=== PATIENT | female | born 1940 | race African-American/Black ===

== ENCOUNTER 2016-11-24 12:35 | Inpatient (IN) ==
[2016-11-24 13:30] LABS: Basophils % 0.2 % (0.0-0.8); Hematocrit 25.4 VOL% (35.7-47.0); Hemoglobin 8.4 GM/DL (12.0-16.0); Immature Granulocytes % 0.4 %; Immature Granulocytes Absolute 0.04 #; Lymphocytes # 1.2 10*3/uL (1.4-4.0); Lymphocytes % 11.5 % (21.3-54.2); Mean Corpuscular HGB Conc 33.1 GM/DL (32-36); Mean Corpuscular Hemoglobin 32 PG (27-34); Mean Corpuscular Volume 97.3 FL (87-102); Monocytes # 0.5 10*3/uL (0.11-0.8); Monocytes % 4.7 % (1.7-12.7); Neutrophils # 8.8 10*3/uL (1.4-7.4); Neutrophils % 83.2 % (38.7-73.9); Platelet Count 149 T/CUMM (130-400); Red Blood Count 2.61 MC/CUMM (3.8-5.5); Red Cell Distribution Width 13.4 % (9.3-17.3); White Blood Count 10.6 T/CUMM (4-12)
--- NOTE | 2016-11-24 13:36 | CT Report ---
CT head/brain wo con Indication: Fall Comparison: CT brain dated May 11, 2016 Technique: Multiple axial tomographic images of the brain were obtained without the use of intravenous contrast. Findings: Moderate global volume loss present. Moderate periventricular and subcortical hypoattenuation noted which is nonspecific but consistent with chronic microvascular ischemic change. Demyelinating process and vasculitis less likely considerations. Atherosclerotic calcifications demonstrated. There is no convincing evidence of acute intracranial hemorrhage . No convincing evidence of hydrocephalus. Midline structures are nondisplaced. Redemonstration of significant calcification density about the odontoid atlantal articulation with some effacement of the ventral foramen magnum, unchanged. IMPRESSION: No acute intracranial abnormality demonstrated. Probable chronic microvascular ischemic change and volume loss. The CT exam was performed using one or more of the following dose reduction techniques: Automated exposure control, adjustment of the mA and/or kV according to patient size, or use of iterative reconstruction technique. PROCEDURE INTERPRETED AT [facility] DEPARTMENT OF RADIOLOGY Final Report Signed by: Dr Sabino Staton
--- NOTE | 2016-11-24 13:43 | XRay Report ---
XR knee 2V BI Indication: Fall Comparison: None Technique: Frontal and lateral views of bilateral knees. 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 No definitive acute fracture demonstrated. Small suprapatellar joint effusions bilaterally. IMPRESSION: As above. PROCEDURE INTERPRETED AT [facility] DEPARTMENT OF RADIOLOGY Final Report Signed by: Dr Sabino Staton
--- NOTE | 2016-11-24 14:01 | Emergency Department Note ---
Mk Rock Brittany, am scribing for, and in the presence of, Montana Kay MD 13:23. Eliza Rock Phillip K, MD, personally performed the services described in this documentation, ascribed by Maddie Terrazas in my presence, and it is both accurate and complete 401 . Arrival - Arrival Chief Complaint: Fall Stated Complaint: Fall Garcia ED Nursing Triage Note: Patient presents to the ER per EMS status post fall; family unsure how long patient was down and patient is also unsure. She reports waking up this morning and blacking out; she does have a laceration present to right, lateral eye. EMS reports approximately 500ml blood loss; blood clotted before their arrival. Patient was found in a prone position per EMS. Mode of Arrival: Stretcher Limitations: No Limitations Source: Patient, RN Notes Reviewed Time Seen by Provider: 11/24/16 13:08 - History of Present Illness HPI Narrative: Patient is a 76 y/o black female presenting to the ED via EMS for further evaluation s/p syncopal episode and fall that occurred earlier today. Family reports that they last saw patient at about 0700 this morning before they left the residence to see another family member. Upon their return to the residence some hours later, patient was found in prone position on the floor with clotted blood around her, EMS estimated about 500 mL of blood loss. Patient reportedly took a syncopal fall, hitting her head in the process resulting in a 2 cm laceration to the R periorbital area. Patient recalls waking up this morning and last remembers "blacking out." Patient currently takes a blood thinner. Patient complains of bilateral knee pain, but denies any neck pain, back pain, or arm pain. She has no other complaint/pain. Review of System - Review of System 12 point system: reviewed and no additional remarkable complaints except as stated - Review of System Constitutional: Absent: fever Cardiovascular: Present: syncope Musculoskeletal: Present: leg pain (bilateral knee) Skin: Present: other (laceration to head) Medical,Surgical,& Family Hx - Medical History Respiratory: History of: Pulmonary Embolism Gastrointestinal: History of: GERD - Social History Smoking Status: Never smoker Frequency of Alcohol Use: None Type of Drug Use: None Exam Vital Signs: Vital Signs Temperature 97.1 F L 11/24/16 12:44 Pulse Rate 55 L 08/16/17 12:44 Respiratory Rate 19 11/24/16 12:44 Blood Pressure 146/46 11/24/16 12:44 O2 Sat by Pulse Oximetry 97 11/24/16 12:44 - General General appearance: alert, in no apparent distress - Head Head exam: Present: normocephalic. Absent: atraumatic (2 cm laceration to the lateral right periorbital area) - Eye Eye exam: Present: PERRL, EOMI. Absent: normal appearance (pale conjuntiva) - ENT ENT exam: Present: mucous membranes moist - Neck Neck exam: Present: normal inspection, full ROM, trachea midline - Chest Chest inspection: Present: normal inspection, symmetric chest wall rise - Respiratory Respiratory exam: Present: normal lung sounds bilaterally - Cardiovascular Cardiovascular exam: Present: regular rate, normal rhythm, normal heart sounds - Abdominal Exam Abdominal exam: Present: soft, normal bowel sounds. Absent: tenderness - Extremities Exam Extremities exam: Present: tenderness (tender right medial joint line of the knee). Absent: normal inspection (swelling over the right medial joint line), full ROM (limited secondary to pain) - Back Exam Back exam: Present: normal inspection - Neurological Exam Neurological exam: Present: alert, CN II-XII intact. Absent: oriented X3 ( oriented to person, place, but not time), motor sensory deficit - Psychiatric Psychiatric exam: Present: normal affect, normal mood - Skin Skin exam: Present: warm, dry, pallor. Absent: intact (2 cm laceration right periorbital area), normal color Course Course Narrative: Patient discussed with the hospitalist. We will admit because of her significant blood loss at the scene of her fall. She also does not remember how she fell. Results - Labs CBC & BMP: 11/24/16 13:21 Lab Results: I have reviewed the patients labs Labs: Laboratory Tests 11/24/16 13:21 WBC 10.6 RBC 2.61 L Hgb 8.4 L Hct 25.4 L Plt Count 149 Neut % (Auto) 83.2 H Lymph % (Auto) 11.5 L Neut # (Auto) 8.8 H Lymph # (Auto) 1.2 L - EKG EKG results: interpreted by EVARISTO (Sinus bradycardia) - Diagnostic Findings Procedure: CT: report reviewed by me (CT Head: No acute intracranial abnormality demonstrated. 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 No definitive acute fracture demonstrated. Small suprapatellar joint effusions bilaterally.) Disposition Clinical Impression: Anemia, Syncope, Laceration, Blood loss from laceration Case discussed with: patient, patient's family Disposition: Still a Patient Condition: Guarded Additional Instructions: Admit to the hospitalist for serial H&H's
[2016-11-24] MEDS ORDERED: ONDANSETRON 4 MG/2 ML VIAL IV PRN (15:59)
[2016-11-24] MEDS ORDERED: ACETAMINOPHEN 325 MG TABLET PO PRN (15:59)
--- NOTE | 2016-11-24 16:20 | Hospitalist History & Physical ---
Assessment and Plan (1) Syncope Status: Acute Assessment and plan: Admit to telemetry. No acute pathology on CT. Consult cardiology for eval. CBC/ BMP in am. Current Visit: Yes (2) Bradycardia Status: Acute Assessment and plan: EKG monitoring. Consult cardiology to evaluate. Unable to obtain history from patient or family. Current Visit: Yes (3) Anemia Status: Acute Assessment and plan: Unknown if this is chronic issue or related to blood loss after fall. Check frequent H&Hs. Follow up as needed. Current Visit: Yes (4) Laceration Status: Acute Assessment and plan: Pt. received suture in the ED Current Visit: Yes History of Present Illness Chief complaint: fall History of present illness: Ms. Oakes is a 76 year old black female with a history of gerd, dementia, thyroid issues, and pulmonary embolism that presented to the ED via EMS for further evaluation after a syncopal episode and a fall. Pt.'s family was not at the bedside to provide any history for patient. Per ED physician note, pt was last seen at 0700 by her family. When they returned home patient was in the prone position on the floor with clotted blood surrounding her. EMS was alerted and they reported about 500 ml of blood loss. Pt. was reported to have a syncopal episode, fell and hit her head. Pt. is not a very good historian but was able to report falling. She stated "I blacked out". Pt is reported as taking a blood thinner but no meds were noted in the record. Pt. denies any other issues at the ED. Pt's CT was negative. Pt. was also noted to be bradycardiac. Pt. will be admitted to the hospitalist service for further evaluation. Home Medications Medication Instructions Recorded Confirmed Type Donepezil HCl 23 mg PO BEDTIME 11/24/16 11/24/16 History Levothyroxine Tab [Synthroid Tab] 125 mcg PO DAILY@0700 11/24/16 11/24/16 History Simvastatin [Zocor] 80 mg PO BEDTIME 11/24/16 11/24/16 History Allergies Allergy/AdvReac Type Severity Reaction Status Date / Time No Known Allergies Allergy Verified 11/24/16 15:59 Medical,Surgical,& Family Hx - Medical History Respiratory: History of: Pulmonary Embolism Genitourinary: History of: Recurring Urinary Tract Infections Gastrointestinal: History of: GERD - Social History Smoking Status: Never smoker Frequency of Alcohol Use: None Type of Drug Use: None ROS unobtainable: due to dementia (unable to obtain history from patient. No family present at the bedside. ) Exam - Constitutional Vitals: Period Temp Pulse Resp BP Sys/Feldman Pulse Ox Last 24 Hr 97.1 F-97.1 F 50-55 18-19 146/46 97 General appearance: normal weight, no acute distress - Head Head exam: Present: normocephalic. Absent: normal inspection (hair), atraumatic - Eye Eye exam: Present: EOMI, other (bruise on right eye). Absent: periorbital swelling Pupils: Present: TEJA - Respiratory Respiratory exam: Present: clear to auscultation bilaterally. Absent: wheezes - Cardiovascular Cardiovascular exam: Present: bradycardia - GI/Abdominal GI/Abdominal exam: Present: normal bowel sounds, soft. Absent: tenderness - Extremities Exam Extremities exam: Present: edema - Neurological Exam Neurological exam: Present: altered - Psychiatric Psychiatric exam: Present: normal affect, normal mood - Skin Skin exam: Present: normal color, warm, dry Results - Labs CBC & BMP: 11/24/16 13:21 Lab Results: I have reviewed the past 24 hour labs
[2016-11-24 16:56] LABS: Hematocrit 24.3 VOL% (35.7-47.0); Hemoglobin 8.2 GM/DL (12.0-16.0)
[2016-11-24 17:26] LABS: Calcium 9.3 MG/DL (8.5-10.1); Magnesium 2.2 MG/DL (1.8-2.4); Osmolality,Calculated 288.3 MOS/KG (273-304); Potassium 3.7 MMOL/L (3.5-5.1)
[2016-11-24] MEDS: SODIUM CHLORIDE 0.9% 1,000 ML IV SCH (17:38)
--- NOTE | 2016-11-24 19:33 | Cardiology Consult Note ---
Assessment and Plan - Time spent with patient Time spent with patient: Greater than 30 minutes (1) Syncope Status: Acute Assessment and plan: Differential diagnosis syncope could be bradycardia, tachycardia, seizure, orthostatic hypertension, metabolic cause, or some other cause Plan/recommendation: air sampling and monitoring Echo/Doppler Neuro consult Carotid ultrasound --if not done We will review CT of the head Recheck BMP in the a.m. Watch renal function I will follow along with you. Thank you for allowing me to participate in this patient's care Current Visit: Yes (2) DVT (deep venous thrombosis) Status: Acute Current Visit: Yes (3) Pulmonary embolus Status: Acute Current Visit: Yes (4) Chronic anticoagulation Status: Acute Current Visit: Yes (5) Anemia Status: Acute Current Visit: Yes (6) Bradycardia Status: Acute Current Visit: Yes (7) Laceration Status: Acute Current Visit: Yes History of Present Illness - Data of Consult Patient: new to practice Consult date: 11/24/16 Requesting Physician: Ludmila Hoskins - Consult Narrative History of present illness: Ms. Oakes is a 76 year old female pcp--dr. shemar ruiz--0 Who presents after a fall face down. She injured her mouth. Is a syncopal episode. She was noted to have low heart rate on admission but not less than 50. She was sewn up for her injuries. She states she did not have any tongue biting or urinary incontinence but she had some bowel incontinence. She states she was clear after the event. No orthopnea, PND, edema, palpitations,, cough wheezing or phlegm. History of DVT and PE-own anticoagulant now GERD Dementia Does not smoke cigarettes or drink alcohol No family history of coronary disease or diabetes SPH: Sometimes, yes, yes and yes Review of systems is remarkable for HPI. CC: Aeblardo Aviles III - Home Medications and Allergies Home Medications: Home Medications Medication Instructions Recorded Confirmed Type Calcium Carb/Mag Ox/Zinc Sulf 1 each PO DAILY 11/24/16 11/24/16 History [Scegsqx-Fqzcqgijx-Tkvl Tablet] Cyanocobalamin (Vitamin B-12) 1,000 mcg PO DAILY 11/24/16 11/24/16 History [Vitamin B-12] Donepezil HCl 23 mg PO BEDTIME 11/24/16 11/24/16 History Furosemide Tab [Lasix Tab] 40 mg PO DAILY 11/24/16 11/24/16 History Levothyroxine Tab [Synthroid Tab] 125 mcg PO DAILY@0700 11/24/16 11/24/16 History Multivitamin [Multivitamins] 1 each PO DAILY 11/24/16 11/24/16 History Simvastatin [Zocor] 80 mg PO BEDTIME 11/24/16 11/24/16 History Warfarin [Coumadin] 3.75 mg PO MOWEFR@1800 11/24/16 11/24/16 History Warfarin [Coumadin] 7.5 mg PO SUTUTHSA@1800 11/24/16 11/24/16 History Allergies/Adverse Reactions: Allergies Allergy/AdvReac Type Severity Reaction Status Date / Time No Known Allergies Allergy Verified 11/24/16 15:59 12 point system: reviewed and no additional remarkable complaints except as stated (A 12 point review of systems is negative except for as mentioned in HPI. ) Medical,Surgical,& Family Hx - Medical History Neurology: History of: Dementia Respiratory: History of: Pulmonary Embolism Genitourinary: History of: Recurring Urinary Tract Infections Gastrointestinal: History of: GERD - Social History Smoking Status: Never smoker Frequency of Alcohol Use: None Type of Drug Use: None Functional capacity: independent ambulation Physical Examination Vital Signs Temp Pulse Resp BP Pulse Ox 97.1 F L 52 L 19 146/46 97 11/24/16 12:44 11/24/16 12:44 11/24/16 12:44 11/24/16 12:44 11/24/16 12:44 Exam: HEENT: Pupils equal, reactive to light and accommodation Neck: NoJVD or bruit Lungs clear to auscultation Heart: Regular rhythm rate with normal S1 and S2. Apical S4 Abdomen: No hepatosplenomegaly Spine/extremities: No clubbing, cyanosis, or edema Neuro: Nonfocal Psych: No depression or anxiety Result/EKG - Labs CBC & BMP: 11/24/16 16:44 11/24/16 16:44 Lab Results: I have reviewed the past 24 hour labs Labs: Laboratory Results - last 24 hr 11/24/16 11/24/16 11/24/16 13:21 16:44 16:44 WBC 10.6 RBC 2.61 L Hgb 8.4 L 8.2 L Hct 25.4 L 24.3 L MCV 97.3 MCH 32 MCHC 33.1 RDW 13.4 Plt Count 149 MPV 10.0 Neut % (Auto) 83.2 H Lymph % (Auto) 11.5 L Barry % (Auto) 4.7 Eos % (Auto) 0.0 Baso % (Auto) 0.2 Neut # (Auto) 8.8 H Lymph # (Auto) 1.2 L Barry # (Auto) 0.5 Eos # (Auto) 0.0 Baso # (Auto) 0.0 Immature Gran % 0.4 Nucleated RBC % 0.0 Immature Gran # 0.04 Nucleated RBCs # 0.00 Immature Plt Fraction 0.0 Sodium 141 Potassium 3.7 Chloride 106 Carbon Dioxide 27 Anion Gap 11.7 BUN 31 H Creatinine 1.70 H GFR Calculation 37 BUN/Creatinine Ratio 18.00 Glucose 121 H Calculated Osmolality 288.3 Calcium 9.3 Magnesium 2.2 - EKG EKG results: interpreted by me
[2016-11-24] MEDS: Donepezil Hcl [Donepezil Hcl] 23 MG Tablet PO SCH (21:08)
[2016-11-24] MEDS: SIMVASTATIN 80 MG TABLET PO SCH (21:08)
[2016-11-24 22:12] LABS: Hematocrit 21.4 VOL% (35.7-47.0); Hemoglobin 7.1 GM/DL (12.0-16.0)
[2016-11-25 05:23] LABS: Basophils % 0.1 % (0.0-0.8); Hematocrit 20.8 VOL% (35.7-47.0); Hemoglobin 6.7 GM/DL (12.0-16.0); Immature Granulocytes % 0.5 %; Immature Granulocytes Absolute 0.05 #; Lymphocytes # 2.2 10*3/uL (1.4-4.0); Lymphocytes % 22.5 % (21.3-54.2); Mean Corpuscular HGB Conc 32.2 GM/DL (32-36); Mean Corpuscular Hemoglobin 32 PG (27-34); Mean Corpuscular Volume 98.6 FL (87-102); Mean Platelet Volume 10.7 FL (9.6-12.0); Monocytes # 0.7 10*3/uL (0.11-0.8); Monocytes % 6.6 % (1.7-12.7); Neutrophils % 70.3 % (38.7-73.9); Platelet Count 135 T/CUMM (130-400); Red Blood Count 2.11 MC/CUMM (3.8-5.5); Red Cell Distribution Width 13.8 % (9.3-17.3)
[2016-11-25 06:07] LABS: Magnesium 2.2 MG/DL (1.8-2.4); Osmolality,Calculated 291.8 MOS/KG (273-304); Potassium 3.9 MMOL/L (3.5-5.1); Risk Ratio 2.01; Thyroid Stimulating Hormone 0.289 uIU/ml (0.358-3.74); VLDL CHOLESTEROL 7.6 MG/DL
--- NOTE | 2016-11-25 07:28 | EKG Report ---
Stationary ECG Study [facility] Test Date: 11/25/2016 7:27:33 AM Pat Name: DILLON LUNA Department: Room: 279 Gender: F Dice Maker: RAUL : 1940 Requested by: Ludmila Hoskins Order Number: [id number] Reading MD: CHAU CORDERO Intervals [place] Rate: 51 P: 85 [place]: 168 QRS: 41 QRSD: 102 T: 71 QT: 449 QTc: 427 Interpretive Statements SINUS BRADYCARDIA Electronically Signed On 11-25-16 09:51:42 CDT by CHAU CORDERO [id number]
--- NOTE | 2016-11-25 08:24 | Ultrasound Report ---
Bilateral carotid Doppler. Grayscale, color-flow, and spectral analysis performed and interpreted. Indication: Syncope. There is mild calcific plaque present at each carotid bulb. The right internal carotid artery peak systolic velocity is 99 cm/s, with an IC/CC ratio of 0.9. The left internal carotid artery peak systolic velocity is 91 cm/s, with an IC/CC ratio of 0.8. There is antegrade flow within each vertebral artery. Impression: Using NASCET criteria, findings consistent with less than 50% stenosis bilaterally. The Ultrasound images were captured and stored. PROCEDURE INTERPRETED AT [facility] DEPARTMENT OF RADIOLOGY Final Report Signed by: Dr. Teagan Bowden
--- NOTE | 2016-11-25 08:26 | EKG Report ---
Stationary ECG Study [facility] Test Date: 11/24/2016 1:05:47 PM Pat Name: DILLON LUNA Department: Room: 279 Gender: F Oxidation Engineer: : 1940 Requested by: Montana Beltre Order Number: [id number] Reading MD: CHAU CORDERO Intervals [place] Rate: 49 P: 61 [place]: 184 QRS: -14 QRSD: 94 T: 11 QT: 473 QTc: 443 Interpretive Statements SINUS BRADYCARDIA Electronically Signed On 11-25-16 09:33:09 CDT by CHAU CORDERO [email or web address]
[2016-11-25] MEDS: LEVOTHYROXINE 125 MCG TABLET PO SCH (09:39)
[2016-11-25] MEDS: PANTOPRAZOLE 40 MG TABLET PO SCH (09:39)
[2016-11-25] MEDS ORDERED: SODIUM CHLORIDE 0.9% 250 ML IV PRN (09:40)
--- NOTE | 2016-11-25 09:51 | Cardiology Progress Note ---
Assessment and Plan - Time spent with patient Time spent with patient: Less than 30 minutes (1) Syncope Status: Acute Assessment and plan: See plan of care listed below. Current Visit: Yes (2) DVT (deep venous thrombosis) Status: Resolved Assessment and plan: See plan of care listed below. Current Visit: Yes (3) Pulmonary embolus Status: Resolved Assessment and plan: See plan of care listed below. Current Visit: Yes (4) Chronic anticoagulation Status: Chronic Assessment and plan: See plan of care listed below. Current Visit: Yes (5) Anemia Status: Acute Assessment and plan: See plan of care listed below. Current Visit: Yes (6) Bradycardia Status: Acute Assessment and plan: See plan of care listed below. 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 Oakes is a 76 y/o BF who presented after a syncopal episode in which she fell face first and injured her mouth. She was noted to be bradycardic with rates in the 50s. She was sewn up for her injuries. She states she did not have any tongue biting or urinary incontinence but she had some bowel incontinence. She states she was clear after the event. She does have a history of DVT and PE as well as GERD and dementia. She lives at home with her daughter, Corin Prescott, who is in the hospital room next door currently. She has very limited mobility and uses a cane to assist with ambulation. Her other daughter, who lives in [place], states that she is unable to ambulate without the cane and she refuses to use a walker or wheelchair. She has a laceration to her right lateral eye. Prior to her arrival at the hospital , EMS reported approximately 500ml blood loss, blood had clotted prior to EMS arrival. NOVEMBER 25, 2016 UPDATE: Ms. Oakes reports she is feeling much better today. She has still not been out of the bed very much. H&H has continued to drop since admission and we'll give her some blood today. Carotid dopplers revealed less than 50% stenosis bilaterally. Echocardiogram is pending. Vital signs have remained stable. Will continue to monitor. ASSESSMENT/PLAN: 1. SYNCOPE - Head CT and carotid dopplers unremarkable. Differential diagnosis includes: bradycardia, tachycardia, seizure, orthostatic hypotension, anemia, metabolic cause. Awaiting echocardiogram results. Neurology to evaluate. Will further discuss with Dr. Atkins and await further recommendations. 2. HISTORY OF DVT - On chronic anticoagulation with Coumadin which is currently being held due to anemia. 3. HISTORY OF PE - On chronic anticoagulation with Coumadin which is currently being held due to anemia. 4. CHRONIC ANTICOAGULATION - Will check PT/INR. H&H low this morning at 6.7 and 20.8. 5. ANEMIA - H&H has trended down since admission. Was 8.4 and 25.4, now 6.7 and 20.8. Coumadin is currently being held. Creatinine 1.7. 6. BRADYCARDIA - Stable, HRs have been in the 50s. She has not been out of the bed much to assess for dizziness/lightheadedness. The benazepril or generic Aricept could be the cause of her bradycardia. Exam (Progress Note) - Constitutional Vitals: Period Temp Pulse Resp BP Sys/Feldman Pulse Ox Last 24 Hr 97.1 F-99.5 F 49-59 16-20 107-150/46-89 97-100 Exam: General: Present: Appears Well, No Apparent Distress. Pleasant and cooperative. HEENT: Present: PERRL, Normocephaly, atraumatic. Mucus Membranes Moist. No jaundice noted. Conjunctiva moist and clear. Neck: Present: Supple Neck, Midline Trachea, No Masses, No Bruit, No tenderness Cardiac: Present: Regular Rate and Rhythm, No Murmur Lungs: Present: clear to auscultation bilaterally, no wheezes, rhonchi, rales. Neuro: Present: Awake, alert, and oriented x3. Moves all extremities well without hemiparesis or paralysis. Grossly Intact. Absent: Resting Tremor, Essential Tremor Abdomen: Present: Soft, Active Bowel Sounds, No Masses, Non-Tender, nondistended. No abdominal bruit or thrill noted. Skin: Present: Clear. Laceration to right lateral eye. Absent: Rash, No skin breakdown. Musculoskeletal: Present: No Fluid Collection, No Pain, Normal Range of Motion Extremities: Present: Normal Gait, No Clubbing, No Cyanosis, Upper Extr. Pulses 2+, Lower Extr. Pulses 2+, No edema. Capillary refill less than 3 seconds. Result/EKG - Labs CBC & BMP: 11/25/16 04:55 11/25/16 04:55 Lab Results: I have reviewed the past 24 hour labs Labs: Laboratory Results - last 24 hr 11/24/16 11/24/16 11/24/16 13:21 16:44 16:44 WBC 10.6 RBC 2.61 L Hgb 8.4 L 8.2 L Hct 25.4 L 24.3 L MCV 97.3 MCH 32 MCHC 33.1 RDW 13.4 Plt Count 149 MPV 10.0 Neut % (Auto) 83.2 H Lymph % (Auto) 11.5 L Traill % (Auto) 4.7 Eos % (Auto) 0.0 Baso % (Auto) 0.2 Neut # (Auto) 8.8 H Lymph # (Auto) 1.2 L Traill # (Auto) 0.5 Eos # (Auto) 0.0 Baso # (Auto) 0.0 Immature Gran % 0.4 Nucleated RBC % 0.0 Immature Gran # 0.04 Nucleated RBCs # 0.00 Immature Plt Fraction 0.0 Sodium 141 Potassium 3.7 Chloride 106 Carbon Dioxide 27 Anion Gap 11.7 BUN 31 H Creatinine 1.70 H GFR Calculation 37 BUN/Creatinine Ratio 18.00 Glucose 121 H POC Glucose Hemoglobin A1c Calculated Osmolality 288.3 Calcium 9.3 Magnesium 2.2 B-Natriuretic Peptide Triglycerides Cholesterol LDL Cholesterol VLDL Cholesterol HDL Cholesterol Heart Disease Risk Ratio Free T4 TSH 3rd Generation 11/24/16 11/25/16 11/25/16 22:04 04:55 04:55 WBC 10.0 RBC 2.11 L Hgb 7.1 L 6.7 L Hct 21.4 L 20.8 L MCV 98.6 MCH 32 MCHC 32.2 RDW 13.8 Plt Count 135 MPV 10.7 Neut % (Auto) 70.3 Lymph % (Auto) 22.5 Traill % (Auto) 6.6 Eos % (Auto) 0.0 Baso % (Auto) 0.1 Neut # (Auto) 7.0 Lymph # (Auto) 2.2 Traill # (Auto) 0.7 Eos # (Auto) 0.0 Baso # (Auto) 0.0 Immature Gran % 0.5 Nucleated RBC % 0.0 Immature Gran # 0.05 Nucleated RBCs # 0.00 Immature Plt Fraction 0.0 Sodium 144 Potassium 3.9 Chloride 109 H Carbon Dioxide 29 Anion Gap 9.9 BUN 30 H Creatinine 1.70 H GFR Calculation 37 BUN/Creatinine Ratio 17.00 Glucose 102 POC Glucose Hemoglobin A1c Calculated Osmolality 291.8 Calcium 9.0 Magnesium 2.2 B-Natriuretic Peptide Triglycerides 38 Cholesterol 141 LDL Cholesterol 57.0 VLDL Cholesterol 7.6 HDL Cholesterol 70 H Heart Disease Risk Ratio 2.01 Free T4 TSH 3rd Generation 0.289 L 11/25/16 11/25/16 11/25/16 04:55 04:55 04:55 WBC RBC Hgb Hct MCV MCH MCHC RDW Plt Count MPV Neut % (Auto) Lymph % (Auto) Traill % (Auto) Eos % (Auto) Baso % (Auto) Neut # (Auto) Lymph # (Auto) Traill # (Auto) Eos # (Auto) Baso # (Auto) Immature Gran % Nucleated RBC % Immature Gran # Nucleated RBCs # Immature Plt Fraction Sodium Potassium Chloride Carbon Dioxide Anion Gap BUN Creatinine GFR Calculation BUN/Creatinine Ratio Glucose POC Glucose Hemoglobin A1c < 4.2 L Calculated Osmolality Calcium Magnesium B-Natriuretic Peptide 51 Triglycerides Cholesterol LDL Cholesterol VLDL Cholesterol HDL Cholesterol Heart Disease Risk Ratio Free T4 0.99 TSH 3rd Generation 11/25/16 07:52 WBC RBC Hgb Hct MCV MCH MCHC RDW Plt Count MPV Neut % (Auto) Lymph % (Auto) Traill % (Auto) Eos % (Auto) Baso % (Auto) Neut # (Auto) Lymph # (Auto) Traill # (Auto) Eos # (Auto) Baso # (Auto) Immature Gran % Nucleated RBC % Immature Gran # Nucleated RBCs # Immature Plt Fraction Sodium Potassium Chloride Carbon Dioxide Anion Gap BUN Creatinine GFR Calculation BUN/Creatinine Ratio Glucose POC Glucose 111 H Hemoglobin A1c Calculated Osmolality Calcium Magnesium B-Natriuretic Peptide Triglycerides Cholesterol LDL Cholesterol VLDL Cholesterol HDL Cholesterol Heart Disease Risk Ratio Free T4 TSH 3rd Generation - EKG EKG results: interpreted by me, sinus rhythm EKG shows: bradycardia
[2016-11-25 10:09] LABS: INR 1.5; PT Patient Result 16.1 SECS
[2016-11-25] MEDS: SODIUM CHLORIDE 0.9% 1,000 ML IV SCH (13:49)
--- NOTE | 2016-11-25 14:58 | Neurology Consult Note ---
History of Present Illness History of present illness: Patient is quite confused at this time and unable to provide me any history. History basically obtained from the chart. Ms. Oakes is a 76 year old -[place] lady with past medical history significant for GERD, dementia, thyroid disorder, and pulmonary embolism that presented to the ED after a syncopal episode and a fall. Pt was last seen at 0700 by her family. When they returned home patient was in the prone position on the floor with clotted blood surrounding her. There was reportedly about 500 ml of blood loss. Pt. was reported to have a syncopal episode, fell and hit her head. Pt. is not a very good historian but was able to report falling. She stated "I blacked out". Pt is reported as taking a blood thinner but no meds were noted in the record. Pt's CT was negative. Pt. was also noted to be bradycardiac. Home Medications Medication Instructions Recorded Confirmed Type Calcium Carb/Mag Ox/Zinc Sulf 1 each PO DAILY 11/24/16 11/24/16 History [Ldyfyzs-Qokiawwax-Ohor Tablet] Cyanocobalamin (Vitamin B-12) 1,000 mcg PO DAILY 11/24/16 11/24/16 History [Vitamin B-12] Donepezil HCl 23 mg PO BEDTIME 11/24/16 11/24/16 History Furosemide Tab [Lasix Tab] 40 mg PO DAILY 11/24/16 11/24/16 History Levothyroxine Tab [Synthroid Tab] 125 mcg PO DAILY@0700 11/24/16 11/24/16 History Multivitamin [Multivitamins] 1 each PO DAILY 11/24/16 11/24/16 History Simvastatin [Zocor] 80 mg PO BEDTIME 11/24/16 11/24/16 History Warfarin [Coumadin] 3.75 mg PO MOWEFR@1800 11/24/16 11/24/16 History Warfarin [Coumadin] 7.5 mg PO SUTUTHSA@1800 11/24/16 11/24/16 History Allergies Allergy/AdvReac Type Severity Reaction Status Date / Time No Known Allergies Allergy Verified 11/24/16 15:59 12 point system: reviewed and no additional remarkable complaints except as stated Medical,Surgical,& Family Hx - Medical History Neurology: History of: Dementia Respiratory: History of: Pulmonary Embolism Genitourinary: History of: Recurring Urinary Tract Infections Gastrointestinal: History of: GERD - Social History Smoking Status: Never smoker Frequency of Alcohol Use: None Type of Drug Use: None Exam - Constitutional Vitals: Period Temp Pulse Resp BP Sys/Feldman Pulse Ox Last 24 Hr 97.2 F-99.5 F 49-65 16-20 107-150/47-89 97-100 Exam: GENERAL: Patient is in no acute distress. NECK: Neck is supple. There is no JVD. No carotid bruits present. No thyroid masses. CVS: First and second heart sounds are normal. There is no S3 present. Regular rate and rhythm. RESPIRATORY: Lungs are clear to auscultation without any rales or rhonchi. ABDOMEN: Soft and non-tender. Bowel sounds are present. There is no hepatosplenomegaly. EXT: There is no palpable edema. Peripheral pulses are present. Skin: No rashes Central Nervous system: General: Alert, awake and Oriented x 1 Speech: Fluent Comprehension: Fair Facial expressions: Normal Cranial Nerves: CN1/Olfactory: Normal CN II/ Optic: Normal, Visual Saldana unreliable CN III, and : TEJA & EOMI CN V: Normal & intact CN VII: face is symmetric CNVIII: Normal CN XI/X/XI/XII: Intact and Normal Motor: Bulk and Tone is normal. Strength in the right 4-5/5 Strength in the left 4-5/5 Sensory: Grossly intact for all the modalities of PP, LT and temp sense Reflexes: 1+ and symmetrical Cerebellar function: Normal finger to nose and heel to khan testing. Toes: Equivocal Gait: Not tested at this time Results - Labs CBC & BMP: 11/25/16 04:55 11/25/16 04:55 Assessment and Plan (1) Dementia with psychosis Status: Acute Assessment and plan: Continue Aricept 23 mg daily Add Seroquel 12.5 mg twice daily Add Namenda 5 mg daily Current Visit: Yes (2) Syncope Status: Acute Assessment and plan: Differential included cardiac arrhythmias versus partial seizures secondary to dementia EEG Watchful observation Thank you for the consult Current Visit: Yes
--- NOTE | 2016-11-25 16:11 | Hospitalist Progress Note ---
Assessment and Plan - Time spent with patient Time spent with patient: Greater than 30 minutes (1) Syncope Status: Acute Assessment and plan: 11/25/2016: Cause of syncope not yet defined. Continue telemetry monitoring. Cycle cardiac enzymes. Follow-up echocardiogram report. Check carotid ultrasound to rule out hemodynamically significant ICA stenosis. Consider brain MRI. Continue neuro checks. Physical therapy assessment of muscle strength and gait stability. 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 They are uncertain when patient last completed upper endoscopy and/or colonoscopy studies. Patient is hemodynamically stable at present. She does not require immediate blood product transfusion. Current Visit: Yes (3) GERD (gastroesophageal reflux disease) Status: Chronic Assessment and plan: 11/25/2016: Continue PPI therapy and behavior modification strategies to minimize symptoms of reflux. Current Visit: Yes (4) Hypothyroidism Status: Chronic Assessment and plan: 11/25/2016: Patient received 125 mcg Synthroid supplements daily. Check TSH and free T4 levels. Titrate Synthroid dose accordingly. Current Visit: Yes (5) Dyslipidemia Status: Chronic Assessment and plan: 11/25/2016: Patient receives Zocor 80 mg p.o. every afternoon check fasting lipid panel in a.m. Current Visit: Yes (6) Dementia of Alzheimer's type with behavioral disturbance Status: Chronic Assessment and plan: 11/25/2016: Resume Aricept and Namenda therapy. Seroquel dosing added by consulting neurologist. Hep-Lock IV fluids. Increase physical activity and mobility as tolerated. Follow-up EEG report. Neurologist consult note reviewed. No clinically significant orthostatic blood pressure or pulse rate changes yet documented. Current Visit: Yes Hospitalist: Subjective Interval history: 11/25/2016: Patient's daughter was at bedside during my interview and exam today. Patient is pleasant. She communicates well verbally. She is somewhat confused but tries to disguise her confusion. She is not in acute distress.. Exam - Constitutional Vitals: Period Temp Pulse Resp BP Sys/Feldman Pulse Ox Last 24 Hr 97.5 F-99.5 F 49-65 16-18 107-150/47-87 97-100 General appearance: over weight - Head Head exam: Present: normal inspection, laceration, other (Right lateral orbital ridge laceration sutured) - Eye Eye exam: Present: EOMI - Neck Neck exam: Present: normal inspection. Absent: meningismus, tenderness - Respiratory Respiratory exam: Present: clear to auscultation bilaterally. Absent: wheezes - Cardiovascular Cardiovascular exam: Present: regular rate and rhythm - GI/Abdominal GI/Abdominal exam: Present: normal bowel sounds, distended, soft. Absent: tenderness, rebound - Extremities Exam Extremities exam: Present: normal inspection. Absent: calf tenderness, edema - Back Exam Back exam: Absent: CVA tenderness (L), CVA tenderness (R) - Neurological Exam Neurological exam: Present: alert - Psychiatric Psychiatric exam: Present: normal affect, normal mood - Skin Skin exam: Present: normal color, warm. Absent: rash Results - Labs CBC & BMP: 11/25/16 04:55 11/25/16 04:55
[2016-11-25] MEDS: MEMANTINE 5 MG TABLET PO SCH (21:07)
[2016-11-25] MEDS: SIMVASTATIN 80 MG TABLET PO SCH (21:07)
[2016-11-25] MEDS: QUEtiapine 25 MG TABLET PO SCH (21:08)
[2016-11-25] MEDS: Donepezil Hcl [Donepezil Hcl] 23 MG Tablet PO SCH (21:12)
[2016-11-26 06:54] LABS: Basophils % 0.3 % (0.0-0.8); Eosinophils # 0.1 10*3/uL (0.0-0.87); Eosinophils % 1.7 % (0.00-10.9); Hematocrit 24.5 VOL% (35.7-47.0); Immature Granulocytes % 0.4 %; Immature Granulocytes Absolute 0.03 #; Lymphocytes % 41.9 % (21.3-54.2); Mean Corpuscular HGB Conc 32.7 GM/DL (32-36); Mean Corpuscular Hemoglobin 31 PG (27-34); Mean Corpuscular Volume 95.7 FL (87-102); Monocytes # 0.5 10*3/uL (0.11-0.8); Monocytes % 6.6 % (1.7-12.7); Neutrophils # 3.5 10*3/uL (1.4-7.4); Neutrophils % 49.1 % (38.7-73.9); Red Blood Count 2.56 MC/CUMM (3.8-5.5); Red Cell Distribution Width 15.9 % (9.3-17.3); White Blood Count 7.1 T/CUMM (4-12)
[2016-11-26 06:55] LABS: Platelet Count 108 T/CUMM (130-400)
[2016-11-26 07:22] LABS: Calcium 8.5 MG/DL (8.5-10.1); Magnesium 2.2 MG/DL (1.8-2.4); Osmolality,Calculated 293.6 MOS/KG (273-304); Potassium 4.1 MMOL/L (3.5-5.1)
[2016-11-26 07:31] LABS: Free T4 (Free Thyroxine) 0.9 NG/DL (0.76-1.46); Risk Ratio 1.85; Thyroid Stimulating Hormone 0.667 uIU/ml (0.358-3.74); VLDL CHOLESTEROL 6.2 MG/DL
--- NOTE | 2016-11-26 08:50 | Cardiology Progress Note ---
Assessment and Plan - Time spent with patient Time spent with patient: Less than 30 minutes (1) Syncope Status: Acute Assessment and plan: See plan of care listed below. Current Visit: Yes (2) DVT (deep venous thrombosis) Status: Resolved Assessment and plan: See plan of care listed below. Current Visit: Yes (3) Pulmonary embolus Status: Resolved Assessment and plan: See plan of care listed below. Current Visit: Yes (4) Chronic anticoagulation Status: Chronic Assessment and plan: See plan of care listed below. Current Visit: Yes (5) Anemia Status: Acute Assessment and plan: See plan of care listed below. Current Visit: Yes (6) Bradycardia Status: Acute Assessment and plan: See plan of care listed below. 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 Oakes is a 76 y/o BF who presented after a syncopal episode in which she fell face first and injured her mouth. She was noted to be bradycardic with rates in the 50s. She was sewn up for her injuries. She states she did not have any tongue biting or urinary incontinence but she had some bowel incontinence. She states she was clear after the event. She does have a history of DVT and PE as well as GERD and dementia. She lives at home with her daughter, Corin Prescott, who is in the hospital room next door currently. She has very limited mobility and uses a cane to assist with ambulation. Her other daughter, who lives in [place], states that she is unable to ambulate without the cane and she refuses to use a walker or wheelchair. She has a laceration to her right lateral eye. Prior to her arrival at the hospital , EMS reported approximately 500ml blood loss, blood had clotted prior to EMS arrival. NOVEMBER 26, 2016 UPDATE: Ms. Oakes reports she is feeling much better today. She was moved to a room closer to the nurses station last night due to confusion and her attempting to get out of the bed without assistance. H&H is improved this morning although remains a little low. She did receive 2 units of blood yesterday and H&H is improved to 8.0 and 24.5. Her creatinine is stable at 1.6, potassium 4.1, magnesium 2.2. Carotid dopplers revealed less than 50% stenosis bilaterally. Echocardiogram is pending. Vital signs have remained stable. Will continue to monitor. Believe the plan will be for her to go to rehab or swing bed following this admission to recuperate prior to returning home. She lives at home with her daughter who underwent heart catheterization yesterday and would be unable to provide her with much assistance for the next week or so. ASSESSMENT/PLAN: 1. SYNCOPE - Head CT and carotid dopplers unremarkable. Differential diagnosis includes: bradycardia, tachycardia, seizure, orthostatic hypotension, anemia, metabolic cause. Awaiting echocardiogram results. Neurology has seen in evaluation. She is to undergo an EEG. Will further discuss with Dr. Atkins and await further recommendations. 2. HISTORY OF DVT - On chronic anticoagulation with Coumadin which is currently being held due to anemia. 3. HISTORY OF PE - On chronic anticoagulation with Coumadin which is currently being held due to anemia. 4. CHRONIC ANTICOAGULATION -Coumadin on hold currently due to recent bleeding. Will continue to monitor H&H and INR. 5. ANEMIA - H&H has trended down since admission. Status post blood transfusion on 11/25/2016 with 2 units of PRBCs. H&H has improved some today but still remains on the low side. Coumadin is currently being held. Creatinine 1.6. 6. BRADYCARDIA - Stable, HRs have been in the 50s, now with rates occasionally in the 60s. She has not been out of the bed much to assess for dizziness/ lightheadedness. The benazepril or generic Aricept could be the cause of her bradycardia. Exam (Progress Note) - Constitutional Vitals: Period Temp Pulse Resp BP Sys/Feldman Pulse Ox Last 24 Hr 97.4 F-99.1 F 49-69 12-18 112-160/50-87 96-100 Exam: General: Present: Appears Well, No Apparent Distress. Pleasant and cooperative. HEENT: Present: PERRL, Normocephaly, atraumatic. Mucus Membranes Moist. No jaundice noted. Conjunctiva moist and clear. Neck: Present: Supple Neck, Midline Trachea, No Masses, No Bruit, No tenderness Cardiac: Present: Regular Rate and Rhythm, No Murmur Lungs: Present: clear to auscultation bilaterally, no wheezes, rhonchi, rales. Neuro: Present: Awake, alert, and oriented x3. Moves all extremities well without hemiparesis or paralysis. Grossly Intact. Absent: Resting Tremor, Essential Tremor Abdomen: Present: Soft, Active Bowel Sounds, No Masses, Non-Tender, nondistended. No abdominal bruit or thrill noted. Skin: Present: Clear. Laceration to right lateral eye. Absent: Rash, No skin breakdown. Musculoskeletal: Present: No Fluid Collection, No Pain, Normal Range of Motion Extremities: Present: Normal Gait, No Clubbing, No Cyanosis, Upper Extr. Pulses 2+, Lower Extr. Pulses 2+, No edema. Capillary refill less than 3 seconds. Result/EKG - Labs CBC & BMP: 11/26/16 04:35 11/26/16 04:35 Lab Results: I have reviewed the past 24 hour labs Labs: Laboratory Results - last 24 hr 11/25/16 11/25/16 11/25/16 09:45 09:49 11:30 WBC RBC Hgb Hct MCV MCH MCHC RDW Plt Count MPV Neut % (Auto) Lymph % (Auto) Humphreys % (Auto) Eos % (Auto) Baso % (Auto) Neut # (Auto) Lymph # (Auto) Humphreys # (Auto) Eos # (Auto) Baso # (Auto) Immature Gran % Nucleated RBC % Immature Gran # Nucleated RBCs # Immature Plt Fraction INR 1.5 PT Patient/Control Mix 16.1 Sodium Potassium Chloride Carbon Dioxide Anion Gap BUN Creatinine GFR Calculation BUN/Creatinine Ratio Glucose POC Glucose 106 Hemoglobin A1c Calculated Osmolality Calcium Magnesium Triglycerides Cholesterol LDL Cholesterol VLDL Cholesterol HDL Cholesterol Heart Disease Risk Ratio Free T4 TSH 3rd Generation Blood Type O POSITIVE Antibody Screen Negative Crossmatch See Detail 11/25/16 11/26/16 11/26/16 Unknown 04:35 04:35 WBC 7.1 RBC 2.56 L D Hgb 8.0 L Hct 24.5 L MCV 95.7 MCH 31 MCHC 32.7 RDW 15.9 Plt Count 108 L MPV 11.0 Neut % (Auto) 49.1 Lymph % (Auto) 41.9 Humphreys % (Auto) 6.6 Eos % (Auto) 1.7 Baso % (Auto) 0.3 Neut # (Auto) 3.5 Lymph # (Auto) 3.0 Humphreys # (Auto) 0.5 Eos # (Auto) 0.1 Baso # (Auto) 0.0 Immature Gran % 0.4 Nucleated RBC % 0.0 Immature Gran # 0.03 Nucleated RBCs # 0.00 Immature Plt Fraction 0.0 INR PT Patient/Control Mix Sodium 146 H Potassium 4.1 Chloride 113 H Carbon Dioxide 27 Anion Gap 10.1 BUN 27 H Creatinine 1.60 H GFR Calculation 40 BUN/Creatinine Ratio 16.00 Glucose 79 POC Glucose Hemoglobin A1c Calculated Osmolality 293.6 Calcium 8.5 Magnesium 2.2 Triglycerides Cholesterol LDL Cholesterol VLDL Cholesterol HDL Cholesterol Heart Disease Risk Ratio Free T4 TSH 3rd Generation Blood Type O POSITIVE Antibody Screen Crossmatch 11/26/16 11/26/16 04:35 04:35 WBC RBC Hgb Hct MCV MCH MCHC RDW Plt Count MPV Neut % (Auto) Lymph % (Auto) Humphreys % (Auto) Eos % (Auto) Baso % (Auto) Neut # (Auto) Lymph # (Auto) Humphreys # (Auto) Eos # (Auto) Baso # (Auto) Immature Gran % Nucleated RBC % Immature Gran # Nucleated RBCs # Immature Plt Fraction INR PT Patient/Control Mix Sodium Potassium Chloride Carbon Dioxide Anion Gap BUN Creatinine GFR Calculation BUN/Creatinine Ratio Glucose POC Glucose Hemoglobin A1c 5.7 Calculated Osmolality Calcium Magnesium Triglycerides 31 Cholesterol 133 LDL Cholesterol 51.0 VLDL Cholesterol 6.2 HDL Cholesterol 72 H Heart Disease Risk Ratio 1.85 Free T4 0.90 TSH 3rd Generation 0.667 Blood Type Antibody Screen Crossmatch - EKG EKG results: interpreted by me, sinus rhythm EKG shows: bradycardia
[2016-11-26] MEDS: PANTOPRAZOLE 40 MG TABLET PO SCH (09:23)
[2016-11-26] MEDS: LEVOTHYROXINE 125 MCG TABLET PO SCH (09:23)
[2016-11-26] MEDS: QUEtiapine 25 MG TABLET PO SCH ×2 (09:23→21:23)
[2016-11-26] MEDS: DOCUSATE SODIUM 100 MG CAPSULE PO SCH (10:48)
--- NOTE | 2016-11-26 13:54 | ECHO Report ---
Rachel Oakes Exam Date: 11/25/2016 08:00 Referring Physician: Technologist: Gege Randhawa EVAN Age: 76 Ht (in): 66 Wt (lb): 185 Gender: F Exam Location: [facility] Echo Indications: Syncope and collapse, hx Pulmonary embolus, Chronic anticoagulation, Anemai, Dementia, Bradycardia, unspecified BP: 124 / 63 HR: 51 Rhythm: Sinus Technical Quality: Good IMPRESSIONS Left ventricular ejection fraction is estimated at 60 %. The left atrium is mildly enlarged. Mild mitral valve regurgitation. Mild aortic valve sclerosis without stenosis or regurgitation. Mild tricuspid valve regurgitation. Tricuspid regurgitation velocities suggest a PAP of 41 mmHg. MEASUREMENTS (Male / Female) Normal Values 2D ECHO LV Diastolic Diameter PLAX 5.2 cm 4.2 - 5.9 / 3.9 - 5.3 cm LV Systolic Diameter PLAX 2.9 cm LV Fractional Shortening PLAX 43.8 % IVS Diastolic Thickness 0.9 cm 0.6 - 1.0 / 0.6 - 0.9 cm LVPW Diastolic Thickness 0.9 cm 0.6 - 1.0 / 0.6 - 0.9 cm RV Internal Dim ED PLAX 3.1 cm Aortic Root Diameter 2.5 cm LA Systolic Diameter LX 3.5 cm 3.0 - 4.0 / 2.7 - 3.8 cm DOPPLER TR Peak Velocity 280.0 cm/s TR Peak Gradient 31.4 mmHg FINDINGS Left Ventricle Normal left ventricular cavity size. Normal left ventricular wall thickness. Left ventricular ejection fraction is estimated at 60 %. Right Ventricle The right ventricle is normal in size and function. Right Atrium The right atrium is normal in size. Left Atrium The left atrium is mildly enlarged. Mitral Valve Morphologically normal mitral valve. Mild mitral valve regurgitation. Aortic Valve Mild aortic valve sclerosis without stenosis or regurgitation. Tricuspid Valve Morphologically normal tricuspid valve. Mild tricuspid valve regurgitation. Tricuspid regurgitation velocities suggest a PAP of 41 mmHg. Pulmonic Valve Morphologically normal pulmonic valve without significant stenosis. There is no pulmonic regurgitation. Pericardium Normal pericardium without effusion. Aorta Normal ascending aorta dimension. Carlo Atkins MD (Electronically Signed) Final Date: 26 November 2016 13:52
--- NOTE | 2016-11-26 15:39 | Neurology Progress Note ---
Neurology - PN : Subjective Interval history: Patient seems to be doing better. Less confused. Eating well. Slept better last night. Participating some in therapy. Exam (Progress Note) - Constitutional Vitals: Period Temp Pulse Resp BP Sys/Feldman Pulse Ox Last 24 Hr 97.4 F-99.1 F 51-69 12-18 134-160/59-86 96-100 Exam: GENERAL: Patient is in no acute distress. NECK: Neck is supple. There is no JVD. No carotid bruits present. No thyroid masses. CVS: First and second heart sounds are normal. There is no S3 present. Regular rate and rhythm. RESPIRATORY: Lungs are clear to auscultation without any rales or rhonchi. ABDOMEN: Soft and non-tender. Bowel sounds are present. There is no hepatosplenomegaly. EXT: There is no palpable edema. Peripheral pulses are present. Skin: No rashes Central Nervous system: General: Alert, awake and Oriented x 1 Speech: Fluent Comprehension: Fair Facial expressions: Normal Cranial Nerves: CN1/Olfactory: Normal CN II/ Optic: Normal, Visual [place] unreliable CN III, and : TEJA & EOMI CN V: Normal & intact CN VII: face is symmetric CNVIII: Normal CN XI/X/XI/XII: Intact and Normal Motor: Bulk and Tone is normal. Strength in the right 4-5/5 Strength in the left 4-5/5 Sensory: Grossly intact for all the modalities of PP, LT and temp sense Reflexes: 1+ and symmetrical Cerebellar function: Normal finger to nose and heel to khan testing. Toes: Equivocal Gait: Max assist for transfers and standing Results - Labs CBC & BMP: 11/26/16 04:35 11/26/16 04:35 Assessment and Plan (1) Dementia with psychosis Status: Acute Assessment and plan: Continue Aricept 23 mg daily Change Seroquel 25 mg twice daily Continue Namenda 5 mg daily Current Visit: Yes (2) Syncope Status: Acute Assessment and plan: Differential included cardiac arrhythmias versus partial seizures secondary to dementia Watchful observation Current Visit: Yes
--- NOTE | 2016-11-26 16:46 | Hospitalist Progress Note ---
Assessment and Plan (1) Syncope Status: Acute Assessment and plan: 11/25/2016: Cause of syncope not yet defined. Continue telemetry monitoring. Cycle cardiac enzymes. Follow-up echocardiogram report. Check carotid ultrasound to rule out hemodynamically significant ICA stenosis. Consider brain MRI. Continue neuro checks. Physical therapy assessment of muscle strength and gait stability. 11/26/2016: No additional loss of consciousness since the time of hospital admission. No acute stroke confirmed. I appreciate review and input from consulting neurologist. Current Visit: Yes (2) Anemia Status: Chronic Assessment and plan: 11/25/2016: Patient nor her daughter give a recent history of visible GI, , [employer] blood loss. They are uncertain when patient last completed upper endoscopy and/or colonoscopy studies. Patient is hemodynamically stable at present. She does not require immediate blood product transfusion. 11/26/2016: Hemodynamically stable. Patient received 2 unit packed red blood cell yesterday without untoward side effects. Repeat CBC in a.m. Transfuse as required to maintain hemoglobin greater than 7 g percent. Check stool for occult blood. Consider outpatient GI evaluation for blood loss anemia. Current Visit: Yes (3) GERD (gastroesophageal reflux disease) Status: Chronic Assessment and plan: 11/25/2016: Continue PPI therapy and behavior modification strategies to minimize symptoms of reflux. 11/26/2016: Reflux symptoms well controlled with head of bed elevation, limiting fluid intake within 2 hours of bedtime, and divided by Protonix. Current Visit: Yes (4) Hypothyroidism Status: Chronic Assessment and plan: 11/25/2016: Patient received 125 mcg Synthroid supplements daily. Check TSH and free T4 levels. Titrate Synthroid dose accordingly. 11/26/2016: Patient has normal range TSH and free T4 continue current Synthroid supplementation dose of 125 mcg daily. Current Visit: Yes (5) Dyslipidemia Status: Chronic Assessment and plan: 11/25/2016: Patient receives Zocor 80 mg p.o. every afternoon check fasting lipid panel in a.m. 11/26/2016: Fasting lipid panel total cholesterol 133, LDL 51, HDL 72, triglycerides 31. Patient is receiving 80 mg Zocor daily. Consider dose reduction to reduce possible drug side effect risk. Current Visit: Yes (6) Dementia of Alzheimer's type with behavioral disturbance Status: Chronic Assessment and plan: 11/25/2016: Resume Aricept and Namenda therapy. Seroquel dosing added by consulting neurologist. Hep-Lock IV fluids. Increase physical activity and mobility as tolerated. Follow-up EEG report. Neurologist consult note reviewed. No clinically significant orthostatic blood pressure or pulse rate changes yet documented. 11/26/2016: Patient seems to tolerate low-dose Seroquel prescribed by consulting neurologist. Continue Namenda and Aricept also. Current Visit: Yes Hospitalist: Subjective Interval history: 11/26/2016: Patient is alert and fully oriented today. I interviewed and examined patient while her daughter was at bedside today. Patient denies chest pain, shortness of breath. She is willing to participate with PT exercises. She is willing to accept my recommendation of swing bed rehabilitation. Exam - Constitutional Vitals: Period Temp Pulse Resp BP Sys/Feldman Pulse Ox Last 24 Hr 97.4 F-99.1 F 51-69 12-20 142-160/57-86 96-100 General appearance: over weight - Head Head exam: Present: other (Right lateral supraorbital ridge laceration sutured) - Eye Eye exam: Present: EOMI - Neck Neck exam: Absent: meningismus, tenderness - Respiratory Respiratory exam: Present: clear to auscultation bilaterally. Absent: rales, rhonchi, wheezes - Cardiovascular Cardiovascular exam: Present: regular rate and rhythm - GI/Abdominal GI/Abdominal exam: Present: normal bowel sounds, distended, other (Obese). Absent: tenderness, rebound - Extremities Exam Extremities exam: Absent: calf tenderness, edema - Back Exam Back exam: Absent: CVA tenderness (L), CVA tenderness (R) - Neurological Exam Neurological exam: Present: alert, oriented X3 Results - Labs CBC & BMP: 11/26/16 04:35 11/26/16 04:35
[2016-11-26] MEDS: MEMANTINE 5 MG TABLET PO SCH (21:22)
[2016-11-26] MEDS: Donepezil Hcl [Donepezil Hcl] 23 MG Tablet PO SCH (21:22)
[2016-11-26] MEDS: SIMVASTATIN 80 MG TABLET PO SCH (21:23)
[2016-11-27 04:31] LABS: Basophils % 0.2 % (0.0-0.8); Eosinophils % 0.1 % (0.00-10.9); Hematocrit 24.3 VOL% (35.7-47.0); Immature Granulocytes % 0.5 %; Immature Granulocytes Absolute 0.04 #; Lymphocytes # 1.6 10*3/uL (1.4-4.0); Lymphocytes % 18.5 % (21.3-54.2); Mean Corpuscular HGB Conc 32.9 GM/DL (32-36); Mean Corpuscular Hemoglobin 31 PG (27-34); Mean Corpuscular Volume 95.3 FL (87-102); Mean Platelet Volume 10.8 FL (9.6-12.0); Monocytes # 0.8 10*3/uL (0.11-0.8); Monocytes % 9.4 % (1.7-12.7); Neutrophils % 71.3 % (38.7-73.9); Platelet Count 114 T/CUMM (130-400); Red Blood Count 2.55 MC/CUMM (3.8-5.5); Red Cell Distribution Width 15.2 % (9.3-17.3); White Blood Count 8.4 T/CUMM (4-12)
[2016-11-27 04:43] LABS: INR 1.1; PT Patient Result 11.8 SECS
[2016-11-27 04:58] LABS: Calcium 8.9 MG/DL (8.5-10.1); Magnesium 2.1 MG/DL (1.8-2.4); Potassium 4.1 MMOL/L (3.5-5.1)
[2016-11-27] MEDS: PANTOPRAZOLE 40 MG TABLET PO SCH (09:06)
[2016-11-27] MEDS: DOCUSATE SODIUM 100 MG CAPSULE PO SCH (09:06)
[2016-11-27] MEDS: LEVOTHYROXINE 125 MCG TABLET PO SCH (09:06)
[2016-11-27] MEDS: QUEtiapine 25 MG TABLET PO SCH ×2 (09:06→21:26)
--- NOTE | 2016-11-27 10:01 | Hospitalist Progress Note ---
Assessment and Plan - Time spent with patient Time spent with patient: Less than 30 minutes (1) Syncope Status: Acute Assessment and plan: Been evaluated and is being followed by neurology as well as cardiology. At this time there are plans for possible swing bed placement on Tuesday. Will defer any further evaluation to the services. Current Visit: Yes (2) Anemia Status: Chronic Assessment and plan: She is hemodynamically stable and hemoglobin has been stable since transfusion. We will continue to follow. Current Visit: Yes (3) GERD (gastroesophageal reflux disease) Status: Chronic Assessment and plan: Continue current therapy. Current Visit: Yes (4) Hypothyroidism Status: Chronic Assessment and plan: Stable. Continue current replacement therapy. Current Visit: Yes (5) Dementia of Alzheimer's type with behavioral disturbance Status: Chronic Assessment and plan: Doing well except for some excess sleep. She is recently been started on Seroquel which we will decrease the dose. Current Visit: Yes (6) Chronic kidney disease Status: Chronic Assessment and plan: Stable. We will continue to follow and avoiding nephrotoxic injury or insult. Current Visit: Yes Qualifiers: Chronic kidney disease stage: stage 4 (severe) Qualified Code(s): N18.4 - Chronic kidney disease, stage 4 (severe) Hospitalist: Subjective Interval history: Chart is been reviewed and patient examined. She denies any chest pain, shortness breath, abdominal pain, nausea, vomiting, diarrhea, constipation. She is tolerating her diet. She has been seen by cardiology as well as neurology during her stay. Daughter states that she does sleep quite frequently and wonders if this is secondary to medications. Exam - Constitutional Vitals: Period Temp Pulse Resp BP Sys/Feldman Pulse Ox Last 24 Hr 98.4 F-99.4 F 52-64 12-20 142-166/57-81 99-100 General appearance: no acute distress - Head Head exam: Present: normocephalic, atraumatic - Eye Eye exam: Present: EOMI Pupils: Present: TEJA - ENT ENT exam: Present: normal exam - Neck Neck exam: Present: normal inspection - Respiratory Respiratory exam: Present: clear to auscultation bilaterally. Absent: rales, rhonchi, wheezes - Cardiovascular Cardiovascular exam: Present: regular rate and rhythm - GI/Abdominal GI/Abdominal exam: Present: normal bowel sounds, soft. Absent: mass, tenderness , rebound - Extremities Exam Extremities exam: Absent: calf tenderness, edema - Neurological Exam Neurological exam: Present: alert, oriented X3, CN II-XII intact. Absent: motor sensory deficit - Psychiatric Psychiatric exam: Present: normal affect, normal mood. Absent: agitated, anxious - Skin Skin exam: Present: warm, dry. Absent: erythema Results - Labs CBC & BMP: 11/27/16 04:01 11/27/16 04:01 Lab Results: I have reviewed the past 24 hour labs
--- NOTE | 2016-11-27 11:47 | Cardiology Progress Note ---
Assessment and Plan - Time spent with patient Time spent with patient: Greater than 30 minutes (1) Debilitated Status: Chronic Assessment and plan: SEE PLAN OF CARE LISTED BELOW Current Visit: Yes (2) Anemia Status: Acute Assessment and plan: SEE PLAN OF CARE LISTED BELOW Current Visit: Yes (3) Syncope Status: Resolved Assessment and plan: SEE PLAN OF CARE LISTED BELOW Current Visit: Yes (4) DVT (deep venous thrombosis) Status: Chronic Assessment and plan: SEE PLAN OF CARE LISTED BELOW Current Visit: Yes (5) Pulmonary embolus Status: Resolved Assessment and plan: SEE PLAN OF CARE LISTED BELOW Current Visit: Yes (6) Chronic anticoagulation Status: Chronic Assessment and plan: SEE PLAN OF CARE LISTED BELOW Current Visit: Yes (7) Dementia with psychosis Status: Chronic Assessment and plan: SEE PLAN OF CARE LISTED BELOW Current Visit: Yes (8) Hypertension Status: Chronic Assessment and plan: SEE PLAN OF CARE LISTED BELOW Current Visit: Yes Cardiology - PN: Subj Interval history: Bacteriologist Medical: new to Dr. Atkins SUMMARY: Ms. Oakes is a 76 y/o BF who presented after a syncopal episode in which she fell face first and injured her mouth. She was noted to be bradycardic with rates in the 50s. She was sewn up for her injuries. She states she did not have any tongue biting or urinary incontinence but she had some bowel incontinence. She states she was clear after the event. She does have a history of DVT and PE as well as GERD and dementia. She lives at home with her daughter, Corin Prescott, who is in the hospital room next door currently. She has very limited mobility and uses a cane to assist with ambulation. Her other daughter, who lives in [place], states that she is unable to ambulate without the cane and she refuses to use a walker or wheelchair. She has a laceration to her right lateral eye. Prior to her arrival at the hospital , EMS reported approximately 500ml blood loss, blood had clotted prior to EMS arrival. NOVEMBER 26, 2016 UPDATE: Ms. Oakes reports she is feeling much better today. She was moved to a room closer to the nurses station last night due to confusion and her attempting to get out of the bed without assistance. H&H is improved this morning although remains a little low. She did receive 2 units of blood yesterday and H&H is improved to 8.0 and 24.5. Her creatinine is stable at 1.6, potassium 4.1, magnesium 2.2. Carotid dopplers revealed less than 50% stenosis bilaterally. Echocardiogram is pending. Vital signs have remained stable. Will continue to monitor. Believe the plan will be for her to go to rehab or swing bed following this admission to recuperate prior to returning home. She lives at home with her daughter who underwent heart catheterization yesterday and would be unable to provide her with much assistance for the next week or so. NOVEMBER 27, 2016: Overnight, patient has done well. She continues to improve. Denies chest pain, heaviness or tightness. Hopefully, patient will be eligible for swing bed placement on Tuesday. Labs are basically unchanged overnight. She has had no significant bradycardia overnight. Systolic blood pressure remains elevated averaging 140s-170s. For this reason, I am going to add low- dose Amlodipine. Will further discuss with Dr. Atkins and await additional recommendations. ASSESSMENT/PLAN: 1. SYNCOPE - Head CT and carotid dopplers unremarkable. Differential diagnosis includes: bradycardia, tachycardia, seizure, orthostatic hypotension, anemia, metabolic cause. Awaiting echocardiogram results. Neurology has seen in evaluation. Await results of EEG. 2. HISTORY OF DVT - history of chronic anticoagulation with Coumadin which is currently being held due to anemia. 3. HISTORY OF PE - history of chronic anticoagulation with Coumadin which is currently being held due to anemia. 4. CHRONIC ANTICOAGULATION - Coumadin on hold currently due to recent bleeding. Will continue to monitor H&H and INR. 5. ANEMIA - H&H has trended down since admission. Status post blood transfusion on 11/25/2016 with 2 units of PRBCs. Overnight has been unchanged. 6. BRADYCARDIA - Stable, HRs have been in the 50s, now with rates occasionally in the 60s. Avoiding beta blockers or other seb blocking agents. No significant arrhythmia noted per telemetry. 7. HYPERTENSION - suboptimally controlled. Low-dose amlodipine today. Exam (Progress Note) - Constitutional Vitals: Period Temp Pulse Resp BP Sys/Feldman Pulse Ox Last 24 Hr 98.4 F-99.9 F 52-64 12-20 142-166/57-81 99-100 Exam: General: Present: Appears Well, No Apparent Distress. Pleasant and cooperative. HEENT: Present: PERRL, Normocephaly, atraumatic. Mucus Membranes Moist. No jaundice noted. Conjunctiva moist and clear. Neck: Present: Supple Neck, Midline Trachea, No Masses, No Bruit, No tenderness Cardiac: Present: Regular Rate and Rhythm, No Murmur Lungs: Present: clear to auscultation bilaterally, no wheezes, rhonchi, rales. Neuro: Present: Awake, alert, and oriented x3. Moves all extremities well without hemiparesis or paralysis. Grossly Intact. Absent: Resting Tremor, Essential Tremor Abdomen: Present: Soft, Active Bowel Sounds, No Masses, Non-Tender, nondistended. No abdominal bruit or thrill noted. Skin: Present: Clear. Laceration to right lateral eye. Absent: Rash, No skin breakdown. Musculoskeletal: Present: No Fluid Collection, No Pain, Normal Range of Motion Extremities: Present: Normal Gait, No Clubbing, No Cyanosis, Upper Extr. Pulses 2+, Lower Extr. Pulses 2+, No edema. Capillary refill less than 3 seconds. Result/EKG - Labs CBC & BMP: 11/27/16 04:01 11/27/16 04:01 Lab Results: I have reviewed the past 24 hour labs Labs: Laboratory Results - last 24 hr 11/27/16 11/27/16 11/27/16 04:01 04:01 04:01 WBC 8.4 RBC 2.55 L Hgb 8.0 L Hct 24.3 L MCV 95.3 MCH 31 MCHC 32.9 RDW 15.2 Plt Count 114 L MPV 10.8 Neut % (Auto) 71.3 Lymph % (Auto) 18.5 L Heard % (Auto) 9.4 Eos % (Auto) 0.1 Baso % (Auto) 0.2 Neut # (Auto) 6.0 Lymph # (Auto) 1.6 Heard # (Auto) 0.8 Eos # (Auto) 0.0 Baso # (Auto) 0.0 Immature Gran % 0.5 Nucleated RBC % 0.0 Immature Gran # 0.04 Nucleated RBCs # 0.00 Immature Plt Fraction 0.0 INR 1.1 PT Patient/Control Mix 11.8 D Sodium 143 Potassium 4.1 Chloride 111 H Carbon Dioxide 26 Anion Gap 10.1 BUN 29 H Creatinine 1.70 H GFR Calculation 37 BUN/Creatinine Ratio 17.00 Glucose 120 H Calculated Osmolality 291.0 Calcium 8.9 Magnesium 2.1 - EKG EKG results: interpreted by me EKG shows: bradycardia
[2016-11-27] MEDS: amLODIPine 2.5 MG TABLET PO SCH (13:01)
[2016-11-27] MEDS: Donepezil Hcl [Donepezil Hcl] 23 MG Tablet PO SCH (21:26)
[2016-11-27] MEDS: ATORVASTATIN 40 MG TABLET PO SCH (21:26)
[2016-11-27] MEDS: MEMANTINE 5 MG TABLET PO SCH (21:26)
[2016-11-28 05:45] LABS: Hematocrit 24.9 VOL% (35.7-47.0); Hemoglobin 8.1 GM/DL (12.0-16.0); Mean Corpuscular HGB Conc 32.5 GM/DL (32-36); Mean Corpuscular Hemoglobin 31 PG (27-34); Mean Corpuscular Volume 95.4 FL (87-102); Platelet Count 88 T/CUMM (130-400); Red Blood Count 2.61 MC/CUMM (3.8-5.5); Red Cell Distribution Width 15.1 % (9.3-17.3); White Blood Count 9.7 T/CUMM (4-12)
[2016-11-28 05:46] LABS: Basophils % 0.2 % (0.0-0.8); Eosinophils % 0.2 % (0.00-10.9); Immature Granulocytes % 0.5 %; Immature Granulocytes Absolute 0.05 #; Lymphocytes % 20.9 % (21.3-54.2); Mean Platelet Volume 11.8 FL (9.6-12.0); Monocytes % 10.3 % (1.7-12.7); Neutrophils # 6.6 10*3/uL (1.4-7.4); Neutrophils % 67.9 % (38.7-73.9)
[2016-11-28 06:02] LABS: PT Patient Result 11.1 SECS
[2016-11-28 06:23] LABS: Calcium 9.4 MG/DL (8.5-10.1); Hypochromasia Slight; Lymphocytes 17 % (20-55); Magnesium 2.2 MG/DL (1.8-2.4); Osmolality,Calculated 286.1 MOS/KG (273-304); Potassium 4.5 MMOL/L (3.5-5.1); Segmented Neutrophils 74 % (50-85); Total Cells Counted 100
[2016-11-28 06:24] LABS: Microcytosis Slight
--- NOTE | 2016-11-28 09:01 | Hospitalist Progress Note ---
Assessment and Plan - Time spent with patient Time spent with patient: Less than 30 minutes (1) Syncope Status: Resolved Assessment and plan: Been evaluated and is being followed by neurology as well as cardiology. At this time there are plans for possible swing bed placement on Tuesday. Will defer any further evaluation to the services. Current Visit: Yes (2) Anemia Status: Acute Assessment and plan: She is hemodynamically stable and hemoglobin has been stable since transfusion. We will continue to follow. Current Visit: Yes (3) GERD (gastroesophageal reflux disease) Status: Chronic Assessment and plan: Continue current therapy. Current Visit: Yes (4) Hypothyroidism Status: Chronic Assessment and plan: Stable. Continue current replacement therapy. Current Visit: Yes (5) Dementia of Alzheimer's type with behavioral disturbance Status: Chronic Assessment and plan: 11/27/16: Doing well except for some excess sleep. She is recently been started on Seroquel which we will decrease the dose. Current Visit: Yes (6) Chronic kidney disease Status: Chronic Assessment and plan: Stable. We will continue to follow and avoiding nephrotoxic injury or insult. Creatinine has continued to improve and is at 1.5 today. Current Visit: Yes Qualifiers: Chronic kidney disease stage: stage 4 (severe) Qualified Code(s): N18.4 - Chronic kidney disease, stage 4 (severe) (7) Thrombocytopenia Status: Acute Assessment and plan: Platelets have decreased from 135,00 - 88,000 today. There is been no evidence of bleeding. We will continue to follow. I will discontinue her acetaminophen and Protonix at this time. Although I find no evidence that Seroquel can cause thrombocytopenia if it continues may consider discontinuation as well. She is on no heparin agents at this time as well. Follow-up CBC with platelet count in the a.m. Current Visit: Yes Hospitalist: Subjective Interval history: Patient is doing well this morning. Family states that she did not sleep much last night but is been drowsy this morning. She did eat all of her breakfast with assistance. They complain of constipation and last bowel movement was on Tuesday however she denies any abdominal pain. There is no nausea or vomiting. Exam - Constitutional Vitals: Period Temp Pulse Resp BP Sys/Feldman Pulse Ox Last 24 Hr 98.2 F-100.1 F 52-81 12-20 138-180/63-81 96-100 General appearance: no acute distress - Head Head exam: Present: normocephalic, atraumatic - Eye Eye exam: Present: EOMI Pupils: Present: TEJA - ENT ENT exam: Present: normal exam - Neck Neck exam: Present: normal inspection - Respiratory Respiratory exam: Present: clear to auscultation bilaterally - Cardiovascular Cardiovascular exam: Present: regular rate and rhythm - GI/Abdominal GI/Abdominal exam: Present: normal bowel sounds, soft. Absent: mass, tenderness , rebound - Extremities Exam Extremities exam: Absent: calf tenderness, edema - Neurological Exam Neurological exam: Present: alert, oriented X3, CN II-XII intact. Absent: motor sensory deficit - Psychiatric Psychiatric exam: Present: normal affect, normal mood. Absent: agitated, anxious - Skin Skin exam: Present: warm, dry. Absent: erythema, petechiae Results - Labs CBC & BMP: 11/28/16 05:09 11/28/16 05:09 Lab Results: I have reviewed the past 24 hour labs
[2016-11-28] MEDS: LEVOTHYROXINE 125 MCG TABLET PO SCH (09:09)
[2016-11-28] MEDS: DOCUSATE SODIUM 100 MG CAPSULE PO SCH (09:09)
[2016-11-28] MEDS: PANTOPRAZOLE 40 MG TABLET PO SCH (09:09)
[2016-11-28] MEDS: amLODIPine 2.5 MG TABLET PO SCH (09:10)
[2016-11-28] MEDS ORDERED: BISACODYL 10 MG SUPP RECTAL PRN (09:11)
[2016-11-28] MEDS ORDERED: BISACODYL 10 MG SUPP RECTAL ONE (09:11)
--- NOTE | 2016-11-28 14:31 | Cardiology Progress Note ---
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 Watch renal function I will follow along with you. Thank you for allowing me to participate in this patient's care 11/28/16 Hematocrit seems stable Low platelets are noted We will increase ambulation Get patient up and out of bed in chair Probably go to swing bed at sometime in the near future. Okay with me. Current Visit: Yes (2) DVT (deep venous thrombosis) Status: Chronic Current Visit: Yes (3) Pulmonary embolus Status: Resolved Current Visit: Yes (4) Chronic anticoagulation Status: Chronic Current Visit: Yes (5) Anemia Status: Acute Current Visit: Yes (6) Bradycardia Status: Acute Current Visit: Yes (7) Laceration Status: Acute Current Visit: Yes Cardiology - PN: Subj Interval history: No chest pain or shortness of breath. Exam (Progress Note) - Constitutional Vitals: Period Temp Pulse Resp BP Sys/Feldman Pulse Ox Last 24 Hr 98.2 F-100.1 F 52-81 12-20 138-180/63-81 96-100 Exam: HEENT: Pupils equal, reactive to light and accommodation Neck: NoJVD or bruit Lungs clear to auscultation Heart: Regular rhythm rate with normal S1 and S2. Apical S4 Abdomen: No hepatosplenomegaly Spine/extremities: No clubbing, cyanosis, or edema Neuro: Nonfocal Psych: No depression or anxiety Result/EKG - Labs CBC & BMP: 11/28/16 05:09 11/28/16 05:09 Labs: Laboratory Results - last 24 hr 11/28/16 11/28/16 11/28/16 05:09 05:09 05:09 WBC 9.7 RBC 2.61 L Hgb 8.1 L Hct 24.9 L MCV 95.4 MCH 31 MCHC 32.5 RDW 15.1 Plt Count 88 L D MPV 11.8 Neut % (Auto) 67.9 Lymph % (Auto) 20.9 L Leslie % (Auto) 10.3 Eos % (Auto) 0.2 Baso % (Auto) 0.2 Neut # (Auto) 6.6 Lymph # (Auto) 2.0 Leslie # (Auto) 1.0 H Eos # (Auto) 0.0 Baso # (Auto) 0.0 Total Counted 100 Immature Gran % 0.5 Nucleated RBC % 0.0 Immature Gran # 0.05 Segmented Neutrophils 74 Lymphocytes 17 L Monocytes 9 Nucleated RBCs # 0.00 Immature Plt Fraction 0.0 Hypochromasia Slight Microcytosis Slight Morphology Comment INR 1.0 PT Patient/Control Mix 11.1 Sodium 142 Potassium 4.5 Chloride 108 H Carbon Dioxide 26 Anion Gap 12.5 BUN 23 H Creatinine 1.50 H GFR Calculation 43 BUN/Creatinine Ratio 15.00 Glucose 93 Calculated Osmolality 286.1 Calcium 9.4 Magnesium 2.2 - Diagnostic Findings Procedure: Chest x-ray: report reviewed by me - EKG EKG results: interpreted by me
[2016-11-28] MEDS ORDERED: amLODIPine 10 MG TABLET PO ONE (17:02)
[2016-11-28] MEDS: Donepezil Hcl [Donepezil Hcl] 23 MG Tablet PO SCH (21:40)
[2016-11-28] MEDS: QUEtiapine 25 MG TABLET PO SCH (21:40)
[2016-11-28] MEDS: ATORVASTATIN 40 MG TABLET PO SCH (21:40)
[2016-11-28] MEDS: MEMANTINE 5 MG TABLET PO SCH (21:40)
[2016-11-29 05:39] LABS: Basophils % 0.2 % (0.0-0.8); Eosinophils # 0.1 10*3/uL (0.0-0.87); Eosinophils % 0.5 % (0.00-10.9); Hematocrit 25.6 VOL% (35.7-47.0); Hemoglobin 8.5 GM/DL (12.0-16.0); Immature Granulocytes % 0.3 %; Immature Granulocytes Absolute 0.03 #; Lymphocytes # 1.8 10*3/uL (1.4-4.0); Lymphocytes % 19.5 % (21.3-54.2); Mean Corpuscular HGB Conc 33.2 GM/DL (32-36); Mean Corpuscular Hemoglobin 31 PG (27-34); Mean Corpuscular Volume 93.1 FL (87-102); Monocytes % 10.3 % (1.7-12.7); Neutrophils # 6.4 10*3/uL (1.4-7.4); Neutrophils % 69.2 % (38.7-73.9); Platelet Count 141 T/CUMM (130-400); Red Blood Count 2.75 MC/CUMM (3.8-5.5); Red Cell Distribution Width 14.8 % (9.3-17.3); White Blood Count 9.2 T/CUMM (4-12)
[2016-11-29 05:52] LABS: INR 1.1; PT Patient Result 11.2 SECS
[2016-11-29 06:06] LABS: Calcium 9.4 MG/DL (8.5-10.1); Magnesium 2.1 MG/DL (1.8-2.4); Osmolality,Calculated 277.7 MOS/KG (273-304); Potassium 4.2 MMOL/L (3.5-5.1)
[2016-11-29] MEDS: amLODIPine 2.5 MG TABLET PO SCH (08:42)
[2016-11-29] MEDS: DOCUSATE SODIUM 100 MG CAPSULE PO SCH (08:42)
[2016-11-29] MEDS: LEVOTHYROXINE 125 MCG TABLET PO SCH (08:43)
--- NOTE | 2016-11-29 09:21 | Cardiology Progress Note ---
Addendum entered and electronically signed by Gilda Saini NP 11/29/16 09:36 : Addendum to physical exam: Patient has limited range of motion in her upper extremities. She is able to raise her arms off the bed, but is unable to raise them above chest level. She seems weak and debilitated. Physical therapy has been consulted. Apparently, she was only using her cane at home when she fell. Once she has regained enough strength to ambulate by herself again, I suspect she will require the use of a walker only. Original Note: <Gilda Saini - Last Filed: 11/29/16 09:19> Assessment and Plan - Time spent with patient Time spent with patient: Less than 30 minutes (1) Syncope Status: Resolved Assessment and plan: See plan of care listed below. Current Visit: Yes (2) DVT (deep venous thrombosis) Status: Chronic Assessment and plan: See plan of care listed below. Current Visit: Yes (3) Pulmonary embolus Status: Resolved Assessment and plan: See plan of care listed below. Current Visit: Yes (4) Chronic anticoagulation Status: Chronic Assessment and plan: See plan of care listed below. Current Visit: Yes (5) Anemia Status: Acute Assessment and plan: See plan of care listed below. Current Visit: Yes (6) Bradycardia Status: Acute Assessment and plan: See plan of care listed below. Current Visit: Yes (7) Debilitated Status: Chronic Assessment and plan: See plan of care listed below. Current Visit: Yes (8) Dementia with psychosis Status: Chronic Assessment and plan: See plan of care listed below. Current Visit: Yes Cardiology - PN: Subj Interval history: [employer] Buyer: new to Dr. Atkins SUMMARY: Ms. Oakes is a 76 y/o BF who presented after a syncopal episode in which she fell face first and injured her mouth. She was noted to be bradycardic with rates in the 50s. She was sewn up for her injuries. She states she did not have any tongue biting or urinary incontinence but she had some bowel incontinence. She states she was clear after the event. She does have a history of DVT and PE as well as GERD and dementia. She lives at home with her daughter, Corin Prescott, who is in the hospital room next door currently. She has very limited mobility and uses a cane to assist with ambulation. Her other daughter, who lives in [place], states that she is unable to ambulate without the cane and she refuses to use a walker or wheelchair. She has a laceration to her right lateral eye. Prior to her arrival at the hospital , EMS reported approximately 500ml blood loss, blood had clotted prior to EMS arrival. NOVEMBER 26, 2016 UPDATE: Ms. Oakes reports she is feeling much better today. She was moved to a room closer to the nurses station last night due to confusion and her attempting to get out of the bed without assistance. H&H is improved this morning although remains a little low. She did receive 2 units of blood yesterday and H&H is improved to 8.0 and 24.5. Her creatinine is stable at 1.6, potassium 4.1, magnesium 2.2. Carotid dopplers revealed less than 50% stenosis bilaterally. Echocardiogram is pending. Vital signs have remained stable. Will continue to monitor. Believe the plan will be for her to go to rehab or swing bed following this admission to recuperate prior to returning home. She lives at home with her daughter who underwent heart catheterization yesterday and would be unable to provide her with much assistance for the next week or so. NOVEMBER 27, 2016: Overnight, patient has done well. She continues to improve. Denies chest pain, heaviness or tightness. Hopefully, patient will be eligible for swing bed placement on Tuesday. Labs are basically unchanged overnight. She has had no significant bradycardia overnight. Systolic blood pressure remains elevated averaging 140s-170s. For this reason, I am going to add low- dose Amlodipine. Will further discuss with Dr. Atkins and await additional recommendations. NOVEMBER 29, 2016: Ms. Oakes is a bit more drowsy today than she has been in the past several days. Labs and vital signs are stable. PT/OT have yet to evaluate her. When this occurs, she will eventually be transferred to swing bed. Will further discuss with Dr. Hayward and await additional recommendations. ASSESSMENT/PLAN: 1. SYNCOPE - Head CT and carotid dopplers unremarkable. Differential diagnosis includes: bradycardia, tachycardia, seizure, orthostatic hypotension, anemia, metabolic cause. Echocardiogram revealed normal systolic function, mild MR, mild aortic sclerosis without stenosis or regurgitation, mild TR with PAP 41 mmHg. Neurology has seen in evaluation. Await results of EEG. 2. HISTORY OF DVT - history of chronic anticoagulation with Coumadin which is currently being held due to anemia. 3. HISTORY OF PE - history of chronic anticoagulation with Coumadin which is currently being held due to anemia. 4. CHRONIC ANTICOAGULATION - Coumadin on hold currently due to recent bleeding. Will continue to monitor H&H and INR. 5. ANEMIA - H&H has trended down since admission. Status post blood transfusion on 11/25/2016 with 2 units of PRBCs. Overnight has been unchanged. 6. BRADYCARDIA - Stable, HRs have been in the 50s, now with rates occasionally in the 60s. Avoiding beta blockers or other seb blocking agents. No significant arrhythmia noted per telemetry. 7. HYPERTENSION -Better controlled today. She was started on low-dose amlodipine. Exam (Progress Note) - Constitutional Vitals: Period Temp Pulse Resp BP Sys/Feldman Pulse Ox Last 24 Hr 98.7 F-100.5 F 55-69 12-20 133-189/63-77 96-99 Exam: General: Present: Appears Well, No Apparent Distress. Pleasant and cooperative. HEENT: Present: PERRL, Normocephaly, atraumatic. Mucus Membranes Moist. No jaundice noted. Conjunctiva moist and clear. Neck: Present: Supple Neck, Midline Trachea, No Masses, No Bruit, No tenderness Cardiac: Present: Regular Rate and Rhythm, No Murmur Lungs: Present: clear to auscultation bilaterally, no wheezes, rhonchi, rales. Neuro: Present: Awake, alert, and oriented x3. Moves all extremities well without hemiparesis or paralysis. Grossly Intact. Absent: Resting Tremor, Essential Tremor Abdomen: Present: Soft, Active Bowel Sounds, No Masses, Non-Tender, nondistended. No abdominal bruit or thrill noted. Skin: Present: Clear. Laceration to right lateral eye. Absent: Rash, No skin breakdown. Musculoskeletal: Present: No Fluid Collection, No Pain, Normal Range of Motion Extremities: Present: Normal Gait, No Clubbing, No Cyanosis, Upper Extr. Pulses 2+, Lower Extr. Pulses 2+, Mild BLE edema. Capillary refill less than 3 seconds. Result/EKG - Labs CBC & BMP: 11/29/16 05:12 11/29/16 05:12 Labs: Laboratory Results - last 24 hr 11/29/16 11/29/16 11/29/16 05:12 05:12 05:12 WBC 9.2 RBC 2.75 L Hgb 8.5 L Hct 25.6 L MCV 93.1 MCH 31 MCHC 33.2 RDW 14.8 Plt Count 141 D MPV 11.0 Neut % (Auto) 69.2 Lymph % (Auto) 19.5 L Jenkins % (Auto) 10.3 Eos % (Auto) 0.5 Baso % (Auto) 0.2 Neut # (Auto) 6.4 Lymph # (Auto) 1.8 Jenkins # (Auto) 1.0 H Eos # (Auto) 0.1 Baso # (Auto) 0.0 Immature Gran % 0.3 Nucleated RBC % 0.0 Immature Gran # 0.03 Nucleated RBCs # 0.00 Immature Plt Fraction 0.0 INR 1.1 PT Patient/Control Mix 11.2 Sodium 138 Potassium 4.2 Chloride 106 Carbon Dioxide 26 Anion Gap 10.2 BUN 22 H Creatinine 1.50 H GFR Calculation 43 BUN/Creatinine Ratio 14.00 Glucose 105 Calculated Osmolality 277.7 Calcium 9.4 Magnesium 2.1 - EKG EKG results: interpreted by me, sinus rhythm <Tamika Hayward - Last Filed: 11/29/16 10:58> Exam (Progress Note) - Constitutional Vitals: Period Temp Pulse Resp BP Sys/Feldman Pulse Ox Last 24 Hr 98.7 F-100.5 F 55-69 12-20 133-189/63-77 96-99 Result/EKG - Labs CBC & BMP: 11/29/16 05:12 11/29/16 05:12 Labs: Laboratory Results - last 24 hr 11/29/16 11/29/16 11/29/16 05:12 05:12 05:12 WBC 9.2 RBC 2.75 L Hgb 8.5 L Hct 25.6 L MCV 93.1 MCH 31 MCHC 33.2 RDW 14.8 Plt Count 141 D MPV 11.0 Neut % (Auto) 69.2 Lymph % (Auto) 19.5 L Jenkins % (Auto) 10.3 Eos % (Auto) 0.5 Baso % (Auto) 0.2 Neut # (Auto) 6.4 Lymph # (Auto) 1.8 Jenkins # (Auto) 1.0 H Eos # (Auto) 0.1 Baso # (Auto) 0.0 Immature Gran % 0.3 Nucleated RBC % 0.0 Immature Gran # 0.03 Nucleated RBCs # 0.00 Immature Plt Fraction 0.0 INR 1.1 PT Patient/Control Mix 11.2 Sodium 138 Potassium 4.2 Chloride 106 Carbon Dioxide 26 Anion Gap 10.2 BUN 22 H Creatinine 1.50 H GFR Calculation 43 BUN/Creatinine Ratio 14.00 Glucose 105 Calculated Osmolality 277.7 Calcium 9.4 Magnesium 2.1
--- NOTE | 2016-11-29 11:27 | Physician Query Form ---
CLICK EDIT DOCUMENT TO SELECT QUERY ANSWER --> OK --> SIGN Maggi Rooney RN [employer] W) [phone] (f) [phone] [email or web address] PROVIDERS: Make your selection(s) from the choices in EACH section by typing an "x" and enter comments in the comment section. Please use your independent medical judgment in providing your response. This request does not imply that any particular answer is desired or expected. CLINICAL INDICATORS: (Providers should not edit this section) Pt. admitted with laceration from fall. Based on documentation of "blood loss anemia". H/H of 09/28. Pt. transfused with 2 units PRBC's. H/H up to 12/02 post transfusion. Please clarify the acuity of the blood loss anemia. Clarify which of the following accurately represents the acuity of the above diagnosis. ( ) Acute ( x) Acute on chronic ( ) Chronic stable condition ( ) Remission ( ) Other, please specify: ( ) Clinically unable to determine COMMENTS: PLEASE ALSO DOCUMENT RESPONSE IN PROGRESS NOTES AND/OR DISCHARGE SUMMARY Use of terms such as suspected, likely, or probable (associated with a specific diagnosis that is being evaluated, monitored, or treated as if it exists) are acceptable and can be restated in the discharge summary if not ruled out. MTDD
--- NOTE | 2016-11-29 12:00 | Hospitalist Progress Note ---
Assessment and Plan (1) Dementia of Alzheimer's type with behavioral disturbance Status: Chronic Assessment and plan: The patient is admitted to the hospital with what the daughter describes a sudden decline in her independent status. The patient has become unable to walk without falling. The patient had been using a cane before but seems to week and only uses a walker now. The patient had a laceration of her right brow due to fall at the time of admission. The wound has been sutured and is healing normally. We continue with physical therapy and encourage the patient to participate. If successful with the strategy she would be appropriate to move to swing bed soon. Current Visit: Yes (2) Chronic anticoagulation Status: Chronic Current Visit: Yes (3) Chronic kidney disease Status: Chronic Current Visit: Yes Qualifiers: Chronic kidney disease stage: stage 4 (severe) Qualified Code(s): N18.4 - Chronic kidney disease, stage 4 (severe) (4) Debilitated Status: Chronic Current Visit: Yes Hospitalist: Subjective Interval history: The patient is alert and awake at present. She voices the desire to live independently. The patient does not appear especially motivated to cooperate with physical therapy. I coordinate care with the patient's daughter. She shared the concern about her mother stability and that since Tuesday the mother has been less alert. CT scan was obtained and to my reckoning the images did not reveal any subdural hematoma. Radiology interpretation is still pending. Dr. Pat reduce Seroquel doses yesterday and the patient may be more alert now. I coordinate care with the case therapist concerning possible swing bed transfer. Exam - Constitutional Vitals: Period Temp Pulse Resp BP Sys/Feldman Pulse Ox Last 24 Hr 98.7 F-100.5 F 55-69 12-20 133-189/63-77 96-99 Exam: Constitutional System: No distress. No tremulousness. Head: Normocephalic, atraumatic. Ears, Nose and Throat System: No evidence of Otitis or Mastoiditis. No epistaxis or discharge Eyes System: Pupils equal, round, and reactive. Extraocular muscles intact. Neck: Supple, without adenopathy, No jugular venous distention. No thyromegaly , neck mass, or prior surgery apparent. Respiratory System: Chest clear to auscultation. Cardiovascular System: Heart with regular rate and rhythm. No murmur. GI System: Abdomen soft, nontender. Normo active bowel sounds present. Musculoskeletal System: limbs with 1+ pedal edema. Full distal pulses. Neurological System: No discernable sensory deficit. No aphasia Psychiatric System: Conversation is consistent with dementia Results - Labs CBC & BMP: 11/29/16 05:12 11/29/16 05:12 Lab Results: I have reviewed the past 24 hour labs
--- NOTE | 2016-11-29 12:08 | CT Report ---
CT of the head without contrast. Indication: Altered level of consciousness. Recent head trauma. Comparison: November 24, 2016. There is generalized prominence of the ventricles and sulci consistent with atrophy of aging. There is a partial empty sella. There are prominent changes of low density in the white matter consistent with chronic microvascular ischemia. There is no mass effect or midline shift. There is no evidence of acute or subacute hemorrhage. The calvarium is intact. Included paranasal sinuses and mastoid air cells are clear. Impression: Generalized atrophy and white matter changes consistent with chronic ischemia. No acute intracranial process is seen. The CT exam was performed using one or more of the following dose reduction techniques: Automated exposure control, adjustment of the mA and/or kV according to patient size, or use of iterative reconstruction technique. PROCEDURE INTERPRETED AT [facility] DEPARTMENT OF RADIOLOGY Final Report Signed by: Dr. Teagan Bowden
--- NOTE | 2016-11-29 13:49 | Neurology Progress Note ---
Neurology - PN : Subjective Interval history: Patient is quite sedated. She did not get any Seroquel dose this morning but staying quite sleepy. Family is very concerned about this. However she would wake up and talk normally. Exam (Progress Note) - Constitutional Vitals: Period Temp Pulse Resp BP Sys/Feldman Pulse Ox Last 24 Hr 98.7 F-100.5 F 55-69 12-20 133-189/63-77 96-99 Exam: GENERAL: Patient is in no acute distress. NECK: Neck is supple. There is no JVD. No carotid bruits present. No thyroid masses. CVS: First and second heart sounds are normal. There is no S3 present. Regular rate and rhythm. RESPIRATORY: Lungs are clear to auscultation without any rales or rhonchi. ABDOMEN: Soft and non-tender. Bowel sounds are present. There is no hepatosplenomegaly. EXT: There is no palpable edema. Peripheral pulses are present. Skin: No rashes Central Nervous system: General: Sleepy but arousable Speech: Fluent Comprehension: Fair Facial expressions: Normal Cranial Nerves: CN1/Olfactory: Normal CN II/ Optic: Normal, Visual Saldana unreliable CN III, and : TEJA & EOMI CN V: Normal & intact CN VII: face is symmetric CNVIII: Normal CN XI/X/XI/XII: Intact and Normal Motor: Bulk and Tone is normal. Strength in the right 4-5/5 Strength in the left 4-5/5 Sensory: Grossly intact for all the modalities of PP, LT and temp sense Reflexes: 1+ and symmetrical Cerebellar function: Normal finger to nose and heel to khan testing. Toes: Equivocal Gait: Max assist for transfers and standing Results - Labs CBC & BMP: 11/29/16 05:12 11/29/16 05:12 Assessment and Plan (1) Dementia with psychosis Status: Chronic Assessment and plan: Continue Aricept 23 mg daily Stop Seroquel and Namenda for now Current Visit: Yes (2) Syncope Status: Resolved Assessment and plan: Continue watchful observation Current Visit: Yes
--- NOTE | 2016-11-29 17:30 | XRay Report ---
XR shoulder 2V BI Indication: Shoulder pain. Limited range of motion. Left shoulder 2 views: There is [id number] articulation of the subacromial space. AC joint osteophyte of L1 is present. Joint space narrowing and osteophyte development of the glenohumeral joint is present. No fracture. No dislocation. Impression: Severe left shoulder arthritis. PROCEDURE INTERPRETED AT [facility] DEPARTMENT OF RADIOLOGY Final Report Signed by: Harman Dial M.D.
[2016-11-29] MEDS: ATORVASTATIN 40 MG TABLET PO SCH (20:25)
[2016-11-29] MEDS: Donepezil Hcl [Donepezil Hcl] 23 MG Tablet PO SCH (20:25)
[2016-11-30 06:00] LABS: Basophils % 0.3 % (0.0-0.8); Eosinophils # 0.1 10*3/uL (0.0-0.87); Eosinophils % 0.9 % (0.00-10.9); Hematocrit 26.7 VOL% (35.7-47.0); Hemoglobin 8.7 GM/DL (12.0-16.0); Immature Granulocytes % 0.4 %; Immature Granulocytes Absolute 0.04 #; Lymphocytes # 1.5 10*3/uL (1.4-4.0); Lymphocytes % 15.9 % (21.3-54.2); Mean Corpuscular HGB Conc 32.6 GM/DL (32-36); Mean Corpuscular Hemoglobin 30 PG (27-34); Mean Corpuscular Volume 93.4 FL (87-102); Mean Platelet Volume 11.4 FL (9.6-12.0); Monocytes # 0.9 10*3/uL (0.11-0.8); Neutrophils # 6.8 10*3/uL (1.4-7.4); Neutrophils % 72.5 % (38.7-73.9); Platelet Count 150 T/CUMM (130-400); Red Blood Count 2.86 MC/CUMM (3.8-5.5); Red Cell Distribution Width 14.8 % (9.3-17.3); White Blood Count 9.3 T/CUMM (4-12)
[2016-11-30 06:22] LABS: Eosinophils 2 % (0-10); Lymphocytes 22 % (20-55); Segmented Neutrophils 67 % (50-85); Total Cells Counted 100
[2016-11-30 06:23] LABS: Hypochromasia 1+
[2016-11-30 06:28] LABS: Calcium 9.6 MG/DL (8.5-10.1); Magnesium 2.3 MG/DL (1.8-2.4); Osmolality,Calculated 280.5 MOS/KG (273-304); Potassium 4.3 MMOL/L (3.5-5.1)
--- NOTE | 2016-11-30 08:17 | Cardiology Progress Note ---
<Gilda Saini E - Last Filed: 11/30/16 08:32> Assessment and Plan - Time spent with patient Time spent with patient: Less than 30 minutes (1) Syncope Status: Resolved Assessment and plan: See plan of care listed below. Current Visit: Yes (2) DVT (deep venous thrombosis) Status: Chronic Assessment and plan: See plan of care listed below. Current Visit: Yes (3) Pulmonary embolus Status: Resolved Assessment and plan: See plan of care listed below. Current Visit: Yes (4) Chronic anticoagulation Status: Chronic Assessment and plan: See plan of care listed below. Current Visit: Yes (5) Anemia Status: Acute Assessment and plan: See plan of care listed below. Current Visit: Yes (6) Bradycardia Status: Acute Assessment and plan: See plan of care listed below. Current Visit: Yes (7) Debilitated Status: Chronic Assessment and plan: See plan of care listed below. Current Visit: Yes (8) Dementia with psychosis Status: Chronic Assessment and plan: See plan of care listed below. Current Visit: Yes Cardiology - PN: Subj Interval history: [employer] Executive: new to Dr. Atkins SUMMARY: Ms. Oakes is a 76 y/o BF who presented after a syncopal episode in which she fell face first and injured her mouth. She was noted to be bradycardic with rates in the 50s. She was sewn up for her injuries. She states she did not have any tongue biting or urinary incontinence but she had some bowel incontinence. She states she was clear after the event. She does have a history of DVT and PE as well as GERD and dementia. She lives at home with her daughter, Corin Prescott, who is in the hospital room next door currently. She has very limited mobility and uses a cane to assist with ambulation. Her other daughter, who lives in [place], states that she is unable to ambulate without the cane and she refuses to use a walker or wheelchair. She has a laceration to her right lateral eye. Prior to her arrival at the hospital , EMS reported approximately 500ml blood loss, blood had clotted prior to EMS arrival. NOVEMBER 30, 2016: Ms. Oakes is a bit more drowsy yesterday than she has been in the past several days. We repeated a stat head CT which showed no acute intracranial process. Labs and vital signs are stable. PT/OT have evaluated her and she will eventually be transferred to swing bed. Will further discuss with Dr. Hayward and await additional recommendations. ASSESSMENT/PLAN: 1. SYNCOPE - Initial and repeat head CT and carotid dopplers unremarkable. Differential diagnosis includes: bradycardia, tachycardia, seizure, orthostatic hypotension, anemia, metabolic cause. Echocardiogram revealed normal systolic function, mild MR, mild aortic sclerosis without stenosis or regurgitation, mild TR with PAP 41 mmHg. Neurology has seen in evaluation. Await results of EEG. 2. HISTORY OF DVT - history of chronic anticoagulation with Coumadin which is currently being held due to anemia. 3. HISTORY OF PE - history of chronic anticoagulation with Coumadin which is currently being held due to anemia. 4. CHRONIC ANTICOAGULATION - Coumadin on hold currently due to recent bleeding. Will continue to monitor H&H and INR. 5. ANEMIA - Status post blood transfusion on 11/25/2016 with 2 units of PRBCs. Overnight has been unchanged. H&H remains stable. 6. BRADYCARDIA - Stable, HRs have been in the 50s, now with rates occasionally in the 60s. Avoiding beta blockers or other seb blocking agents. No significant arrhythmia noted per telemetry. 7. HYPERTENSION -Fairly well controlled. She was started on low-dose amlodipine. She has had a couple of elevated readings. We will continue to monitor. She may require an additional blood pressure medicine if her pressures remain elevated. Exam (Progress Note) - Constitutional Vitals: Period Temp Pulse Resp BP Sys/Feldman Pulse Ox Last 24 Hr 97.2 F-100.3 F 50-71 16-20 114-171/53-79 96-99 Exam: General: Present: Appears Well, No Apparent Distress. Pleasant and cooperative. HEENT: Present: PERRL, Normocephaly, atraumatic. Mucus Membranes Moist. No jaundice noted. Conjunctiva moist and clear. Neck: Present: Supple Neck, Midline Trachea, No Masses, No Bruit, No tenderness Cardiac: Present: Regular Rate and Rhythm, No Murmur Lungs: Present: clear to auscultation bilaterally, no wheezes, rhonchi, rales. Neuro: Present: Arousable to verbal stimuli. Oriented to person. Moves all extremities without hemiparesis or paralysis. Absent: Resting Tremor, Essential Tremor Abdomen: Present: Soft, Active Bowel Sounds, No Masses, Non-Tender, nondistended. No abdominal bruit or thrill noted. Skin: Present: Clear. Laceration to right lateral eye. Absent: Rash, No skin breakdown. Musculoskeletal: Present: No Fluid Collection, No Pain, Limited ROM in upper extremities. She is able to raise her arms off the bed, but is unable to raise them above chest level. Extremities: Present: Normal Gait, No Clubbing, No Cyanosis, Upper Extr. Pulses 2+, Lower Extr. Pulses 2+, Mild BLE edema. Capillary refill less than 3 seconds. Result/EKG - Labs CBC & BMP: 11/30/16 05:47 11/30/16 05:47 Lab Results: I have reviewed the past 24 hour labs Labs: Laboratory Results - last 24 hr 11/30/16 11/30/16 05:47 05:47 WBC 9.3 RBC 2.86 L Hgb 8.7 L Hct 26.7 L MCV 93.4 MCH 30 MCHC 32.6 RDW 14.8 Plt Count 150 MPV 11.4 Neut % (Auto) 72.5 Lymph % (Auto) 15.9 L [place] % (Auto) 10.0 Eos % (Auto) 0.9 Baso % (Auto) 0.3 Neut # (Auto) 6.8 Lymph # (Auto) 1.5 [place] # (Auto) 0.9 H Eos # (Auto) 0.1 Baso # (Auto) 0.0 Total Counted 100 Immature Gran % 0.4 Nucleated RBC % 0.0 Immature Gran # 0.04 Segmented Neutrophils 67 Lymphocytes 22 Monocytes 9 Eosinophils 2 Nucleated RBCs # 0.00 Immature Plt Fraction 0.0 Hypochromasia 1+ Morphology Comment Sodium 139 Potassium 4.3 Chloride 106 Carbon Dioxide 25 Anion Gap 12.3 BUN 24 H Creatinine 1.50 H GFR Calculation 43 BUN/Creatinine Ratio 16.00 Glucose 97 Calculated Osmolality 280.5 Calcium 9.6 Magnesium 2.3 - EKG EKG results: interpreted by me, sinus rhythm <Tamika Hayward - Last Filed: 11/30/16 09:23> Cardiology - PN: Subj Interval history: I saw and examined the patient with Ms. Saini. The patient has not had any dysrhythmias she has no evidence of abnormality on her CT scan to suggest bleeding she is much more alert and awake today. I am not yet convinced that she actually had syncope she does not know and is not able to give a very good history. If there is concerns about dysrhythmia consider a 30 day event monitor at discharge. We will continue to monitor her telemetry remotely at this point and follow peripherally. Nothing further to add at this time. Exam (Progress Note) - Constitutional Vitals: Period Temp Pulse Resp BP Sys/Feldman Pulse Ox Last 24 Hr 97.2 F-100.3 F 50-71 16-20 114-171/53-79 96-99 Result/EKG - Labs CBC & BMP: 11/30/16 05:47 11/30/16 05:47 Labs: Laboratory Results - last 24 hr 11/30/16 11/30/16 05:47 05:47 WBC 9.3 RBC 2.86 L Hgb 8.7 L Hct 26.7 L MCV 93.4 MCH 30 MCHC 32.6 RDW 14.8 Plt Count 150 MPV 11.4 Neut % (Auto) 72.5 Lymph % (Auto) 15.9 L [place] % (Auto) 10.0 Eos % (Auto) 0.9 Baso % (Auto) 0.3 Neut # (Auto) 6.8 Lymph # (Auto) 1.5 [place] # (Auto) 0.9 H Eos # (Auto) 0.1 Baso # (Auto) 0.0 Total Counted 100 Immature Gran % 0.4 Nucleated RBC % 0.0 Immature Gran # 0.04 Segmented Neutrophils 67 Lymphocytes 22 Monocytes 9 Eosinophils 2 Nucleated RBCs # 0.00 Immature Plt Fraction 0.0 Hypochromasia 1+ Morphology Comment Sodium 139 Potassium 4.3 Chloride 106 Carbon Dioxide 25 Anion Gap 12.3 BUN 24 H Creatinine 1.50 H GFR Calculation 43 BUN/Creatinine Ratio 16.00 Glucose 97 Calculated Osmolality 280.5 Calcium 9.6 Magnesium 2.3
[2016-11-30] MEDS: amLODIPine 2.5 MG TABLET PO SCH (09:12)
[2016-11-30] MEDS: LEVOTHYROXINE 125 MCG TABLET PO SCH (09:12)
[2016-11-30] MEDS: DOCUSATE SODIUM 100 MG CAPSULE PO SCH (09:12)
[2016-11-30] MEDS ORDERED: ZINC OXIDE PASTE 113 GM TUBE TOP PRN (10:29)
--- NOTE | 2016-11-30 16:41 | Hospitalist Progress Note ---
Assessment and Plan (1) Dementia of Alzheimer's type with behavioral disturbance Status: Chronic Assessment and plan: The patient is admitted to the hospital with what the daughter describes a sudden decline in her independent status. The patient has become unable to walk without falling. The patient had been using a cane before but seems to week and only uses a walker now. The patient had a laceration of her right brow due to fall at the time of admission. The wound has been sutured and is healing normally. We continue with physical therapy and encourage the patient to participate. If successful with the strategy she would be appropriate to move to swing bed soon. Current Visit: Yes (2) Chronic anticoagulation Status: Chronic Current Visit: Yes (3) Chronic kidney disease Status: Chronic Current Visit: Yes Qualifiers: Chronic kidney disease stage: stage 4 (severe) Qualified Code(s): N18.4 - Chronic kidney disease, stage 4 (severe) (4) Debilitated Status: Chronic Current Visit: Yes Hospitalist: Subjective Interval history: Ms. Oakes is more alert today. She says she has less pain in the left shoulder. The patient was well enough to serve her own breakfast this morning and she needs less moment by moment attention. The patient was unable to transfer to chair without Priscilla lift today. Physical and occupational therapy continue as well as efforts to place her with swing bed. Exam - Constitutional Vitals: Period Temp Pulse Resp BP Sys/Feldman Pulse Ox Last 24 Hr 97.2 F-100.3 F 50-69 16-20 114-171/53-79 95-99 Exam: Constitutional System: No distress. No tremulousness. Head: Normocephalic, atraumatic. Ears, Nose and Throat System: No evidence of Otitis or Mastoiditis. No epistaxis or discharge Eyes System: Pupils equal, round, and reactive. Extraocular muscles intact. Neck: Supple, without adenopathy, No jugular venous distention. No thyromegaly , neck mass, or prior surgery apparent. Respiratory System: Chest clear to auscultation. Cardiovascular System: Heart with regular rate and rhythm. No murmur. GI System: Abdomen soft, nontender. Normo active bowel sounds present. Musculoskeletal System: limbs with 1+ pedal edema. Full distal pulses. Neurological System: No discernable sensory deficit. No aphasia Psychiatric System: Conversation is consistent with dementia Results - Labs CBC & BMP: 11/30/16 05:47 11/30/16 05:47 Lab Results: I have reviewed the past 24 hour labs - Diagnostic Findings Procedure: X-ray: report reviewed by me (X-ray of the left shoulder reveals no fracture but does reveal considerable degenerative joint disease.)
--- NOTE | 2016-11-30 16:46 | Neurology Progress Note ---
Neurology - PN : Subjective Interval history: Mentally she is much better. More alert and awake and talking. Answer question appropriately. Exam (Progress Note) - Constitutional Vitals: Period Temp Pulse Resp BP Sys/Feldman Pulse Ox Last 24 Hr 97.2 F-100.3 F 50-69 16-20 114-171/53-79 95-99 Exam: GENERAL: Patient is in no acute distress. NECK: Neck is supple. There is no JVD. No carotid bruits present. No thyroid masses. CVS: First and second heart sounds are normal. There is no S3 present. Regular rate and rhythm. RESPIRATORY: Lungs are clear to auscultation without any rales or rhonchi. ABDOMEN: Soft and non-tender. Bowel sounds are present. There is no hepatosplenomegaly. EXT: There is no palpable edema. Peripheral pulses are present. Skin: No rashes Central Nervous system: General: Sleepy but arousable Speech: Fluent Comprehension: Fair Facial expressions: Normal Cranial Nerves: CN1/Olfactory: Normal CN II/ Optic: Normal, Visual Saldana unreliable CN III, and : TEJA & EOMI CN V: Normal & intact CN VII: face is symmetric CNVIII: Normal CN XI/X/XI/XII: Intact and Normal Motor: Bulk and Tone is normal. Strength in the right 4-5/5 Strength in the left 4-5/5 Sensory: Grossly intact for all the modalities of PP, LT and temp sense Reflexes: 1+ and symmetrical Cerebellar function: Normal finger to nose and heel to khan testing. Toes: Equivocal Gait: Not tested Results - Labs CBC & BMP: 11/30/16 05:47 11/30/16 05:47 Assessment and Plan (1) Dementia with psychosis Status: Chronic Assessment and plan: Continue Aricept 23 mg daily Consult [facility] bed Current Visit: Yes (2) Syncope Status: Resolved Assessment and plan: Continue watchful observation Current Visit: Yes
[2016-11-30] MEDS: ATORVASTATIN 40 MG TABLET PO SCH (20:54)
[2016-11-30] MEDS: Donepezil Hcl [Donepezil Hcl] 23 MG Tablet PO SCH (20:54)
[2016-12-01] MEDS ORDERED: amLODIPine 10 MG TABLET PO SCH (09:00)
[2016-12-01] MEDS: DOCUSATE SODIUM 100 MG CAPSULE PO SCH (09:22)
[2016-12-01] MEDS: LEVOTHYROXINE 125 MCG TABLET PO SCH (09:22)
[2016-12-01 12:37] VITALS: BP 133/65
--- NOTE | 2016-12-01 13:10 | Discharge Summary ---
Hospital Course - Hospital Course Hospital Course: The patient was admitted to the hospital with generalized weakness and worsening of her mental status. The patient improved her sensorium with holding neuroactive medications and with supportive care. The patient is making progress with physical therapy. There was no evidence of stroke. We had neurology and cardiology evaluations. The patient's medications were adjusted. The patient is ready for transfer to swing bed for further physical therapy aimed at returning her to life at home with her family. The patient has progressive dementia with some psychotic features which has improved in the hospital. The patient's medicines were reconciled upon admission and again upon discharge. The patient's healthcare decision maker is her daughter who wished the patient to remain full code. On the date of discharge, the chest is clear and abdomen soft. Heart has irregular rate and rhythm. 34 minutes were required for [id number] evaluation, preparation of discharge documents, reconciliation of medicines, and discussion with the patient's case assembler. The patient was screened for tobacco and found to be a never smoker. She was given 4 minutes tobacco avoidance education. - Time spent with patient Time with patient DS: Greater than 30 minutes Time spent discussing smoking cessation with patient: 3 to 10 minutes Diagnosis - Discharge Diagnosis (1) Dementia of Alzheimer's type with behavioral disturbance Status: Chronic (2) Chronic anticoagulation Status: Chronic (3) Chronic kidney disease Status: Chronic (4) Debilitated Status: Chronic Discharge Plan - Discharge Data Disposition: Disch/Xfer to Snf Condition at Discharge: Stable Discharge Diet: heart healthy Activity: as per physical therapy - Discharge Medications New Warfarin [Coumadin] 4 mg PO DAILY@1800 #60 tablet amLODIPine [Norvasc] 10 mg PO DAILY tablet Continue Donepezil HCl 23 mg PO BEDTIME Multivitamin [Multivitamins] 1 each PO DAILY Calcium Carb/Mag Ox/Zinc Sulf [Cgorfrh-Ayevorssq-Rrom Tablet] 1 each PO DAILY Simvastatin [Zocor] 80 mg PO BEDTIME Levothyroxine Tab [Synthroid Tab] 125 mcg PO DAILY@0700 Cyanocobalamin (Vitamin B-12) [Vitamin B-12] 1,000 mcg PO DAILY Changed Furosemide Tab [Lasix Tab] 20 mg PO DAILY #0 Discontinued Warfarin [Coumadin] 3.75 mg PO MOWEFR@1800 Warfarin [Coumadin] 7.5 mg PO SUTUTHSA@1800 - Follow Up or Referral - Forms/Instructions Exam - Constitutional Vitals: Period Temp Pulse Resp BP Sys/Feldman Pulse Ox Last 24 Hr 97.8 F-99.5 F 59-67 16-20 133-155/56-78 94-100 Discharge Results Procedures and tests throughout hospitalization: Pending Orders 11/28/16 10:39 Occult Blood, Stool Routine DS: Provider Date of admission: 11/25/16 10:12 Primary care physician: Marvin Abbott MD Attending physician on admission: Abelardo Aviles III Consults: 11/24/16 16:49 Consult to Physician [CONS] Routine Comment: bradycardia/syncopal episode Consulting Provider: Carlo Atkins Date Notified: 11/24/16 Time Notified: 17:00 Consult Notification Comment: spoke with dr atkins 11/24/16 19:51 Consult to Physician [CONS] Routine Comment: Consulting Provider: Ned Sims Consulting Provider Notified: No When should Consulting Provider be notified: In am Consult to Specialist Group: Neurology Person Notified: Joyce Date Notified: 11/25/16 Time Notified: 08:30 Consult Notification Comment: Elderly woman with bradycardia which may or may not relate to syncope, syncope episode, who had bowel incontinence after the syncopal event. Please evaluate for the possibility of seizure versus cardiac cause of syncope. Thank you 11/26/16 08:08 Consult to Case Mgmt/Social Srvs [CONS] Routine Reason for Case Mgmt/Social Srvs: Swingbed/SNF/Penitentiary 11/26/16 09:59 Consult to Occupational Therapy [CONS] Routine Reason for Occupational Therapy: Evaluate and Treat Consult to Physical Therapy [CONS] Routine Reason for Physical Therapy: Evaluate and Treat Discharging clinician: Artie Mcginnis MD
== END 2016-12-01 14:24 | disposition swing bed (61) | DRG 309 ==
LOC: N.ED 12:35 → N.EDINP 12:35 → N.TELES 16:00 → SUATTDRO 11-25 10:12 → N.TELES 11-25 18:59
PROVIDERS: ADMIT Internal Medicine; ATTEND Internal Medicine

== ENCOUNTER 2017-02-18 11:13 | Inpatient (IN) ==
[2017-02-18] MEDS ORDERED: DOCUSATE SODIUM 100 MG CAPSULE PO PRN (11:43)
[2017-02-18] MEDS ORDERED: ACETAMINOPHEN 325 MG TABLET PO PRN (11:43)
[2017-02-18] MEDS ORDERED: ALBUTEROL/IPRATROPIUM 3 ML NEB RESP TX PRN (11:43)
[2017-02-18 13:28] LABS: INR 2.5
[2017-02-18 13:33] LABS: PT Patient Result 25.4 SECS
[2017-02-18 13:50] LABS: Folate > 24.0 NG/ML (5.4-24.0); Vitamin B12 > 2000 PG/ML (211-911)
[2017-02-18 13:55] LABS: Albumin 1.9 G/DL (3.4-5.0); Bilirubin,Total 0.4 MG/DL (0.2-1.0); Calcium 12.6 MG/DL (8.5-10.1); Magnesium 2.2 MG/DL (1.8-2.4); Potassium 4.4 MMOL/L (3.5-5.1); Thyroid Stimulating Hormone 36.2 uIU/ml (0.358-3.74); Total Protein 7.7 G/DL (6.4-8.3)
[2017-02-18 13:58] LABS: % Iron Saturation 22.4 % (18-50); Ferritin 4197.2 ng/ml (8-252)
[2017-02-18 14:20] LABS: Sedimentation Rate-Westergren 114 MM/HR (0-30)
[2017-02-18 14:25] LABS: Apearance,Urine CLOUDY (Clear); Bacteria,Urine Many /HPF (Few); Bilirubin,Urine Negative (Negative); Blood, Urine Small mg/dL (Negative); Glucose,Urine (UA) Negative (Negative); Hyaline Casts,Urine 13 /LPF (0-3); Ketones,Urine Negative (Negative); Mucus,Urine Occasional /LPF (Occasional); Nitrite,Urine Negative (Negative); Protein,Urine Negative; Squamous Epithelial Cell,Urine Occasional /HPF (0-10); Urine Color Amber (Yellow); Urine Specific Gravity 1.012 (1.001-1.035); Urine Urobilinogen < 2.0 EU/DL (0.2-1.0); WBC,Urine 179 /HPF (0-6)
[2017-02-18 15:03] LABS: Basophils # 0.1 10*3/uL (0.0-0.2); Basophils % 0.4 % (0.0-0.8); Eosinophils % 0.3 % (0.00-10.9); Hemoglobin 8.7 GM/DL (12.0-16.0); Immature Granulocytes % 1.6 %; Immature Granulocytes Absolute 0.22 #; Lymphocytes # 2.8 10*3/uL (1.4-4.0); Lymphocytes % 20.1 % (21.3-54.2); Mean Corpuscular HGB Conc 31.1 GM/DL (32-36); Mean Corpuscular Hemoglobin 29 PG (27-34); Mean Corpuscular Volume 93.3 FL (87-102); Mean Platelet Volume 9.8 FL (9.6-12.0); Monocytes # 0.6 10*3/uL (0.11-0.8); Monocytes % 3.9 % (1.7-12.7); Neutrophils # 10.3 10*3/uL (1.4-7.4); Neutrophils % 73.7 % (38.7-73.9); Platelet Count 503 T/CUMM (130-400); Red Cell Distribution Width 15.2 % (9.3-17.3)
[2017-02-18] MEDS ORDERED: CHLORHEXIDINE 4% SOLN 118 ML BOTTLE TOP ONE (15:03)
[2017-02-18] MEDS: DEXTROSE 5% NACL 0.45% 1,000 ML IV SCH (15:32)
[2017-02-18] MEDS: MEROPENEM 500 MG in SYRINGE 1 EACH IV SCH (15:34)
[2017-02-18] MEDS: CLINDAMYCIN INJ 300 MG in PREMIX 1 EACH IV SCH (15:39)
[2017-02-18] MEDS: SODIUM HYPOCHLORITE 0.25% IRRIG 473 ML BOTTLE TOP SCH (18:32)
[2017-02-18] MEDS: DONEPEZIL 10 MG TABLET PO SCH (20:26)
[2017-02-19] MEDS: MEROPENEM 500 MG in SYRINGE 1 EACH IV SCH ×3 (04:17→18:17)
[2017-02-19] MEDS: CLINDAMYCIN INJ 300 MG in PREMIX 1 EACH IV SCH ×3 (04:21→17:09)
[2017-02-19] MEDS: LEVOTHYROXINE 100 MCG VIAL IV SCH (06:27)
[2017-02-19 06:30] LABS: Basophils % 0.2 % (0.0-0.8); Eosinophils % 0.1 % (0.00-10.9); Hematocrit 23.4 VOL% (35.7-47.0); Hemoglobin 7.2 GM/DL (12.0-16.0); Immature Granulocytes % 0.9 %; Immature Granulocytes Absolute 0.17 #; Lymphocytes # 3.5 10*3/uL (1.4-4.0); Lymphocytes % 19.5 % (21.3-54.2); Mean Corpuscular HGB Conc 30.8 GM/DL (32-36); Mean Corpuscular Hemoglobin 28 PG (27-34); Mean Platelet Volume 9.4 FL (9.6-12.0); Monocytes % 5.4 % (1.7-12.7); Neutrophils # 13.3 10*3/uL (1.4-7.4); Neutrophils % 73.9 % (38.7-73.9); Platelet Count 406 T/CUMM (130-400)
[2017-02-19 06:52] LABS: Calcium 11.6 MG/DL (8.5-10.1); Potassium 4.2 MMOL/L (3.5-5.1)
[2017-02-19] MEDS ORDERED: LEVOTHYROXINE 125 MCG TABLET PO SCH (07:00)
[2017-02-19] MEDS ORDERED: SODIUM HYPOCHLORITE 0.25% IRRIG 473 ML BOTTLE TOP SCH (09:00)
[2017-02-19] MEDS: MULTIVITAMIN (CENTRUM) TABLET PO SCH (09:13)
[2017-02-19] MEDS: DONEPEZIL 10 MG TABLET PO SCH ×2 (09:13→20:43)
[2017-02-19] MEDS: DOCUSATE SODIUM 100 MG CAPSULE PO SCH (09:13)
[2017-02-19] MEDS: amLODIPine 10 MG TABLET PO SCH (09:14)
[2017-02-19] MEDS: SODIUM HYPOCHLORITE 0.25% IRRIG 473 ML BOTTLE TOP SCH (09:14)
[2017-02-19] MEDS: POTASSIUM CHLORIDE 10 MEQ TABLET PO SCH (09:15)
[2017-02-19] MEDS: FUROSEMIDE 20 MG TABLET PO SCH (09:15)
[2017-02-19] MEDS: DEXTROSE 5% NACL 0.45% 1,000 ML IV SCH ×2 (11:32→18:23)
[2017-02-20] MEDS: MEROPENEM 500 MG in SYRINGE 1 EACH IV SCH ×4 (00:45→23:22)
[2017-02-20] MEDS: CLINDAMYCIN INJ 300 MG in PREMIX 1 EACH IV SCH ×4 (00:50→23:26)
[2017-02-20] MEDS: LEVOTHYROXINE 100 MCG VIAL IV SCH (06:00)
[2017-02-20] MEDS: DEXTROSE 5% NACL 0.45% 1,000 ML IV SCH ×2 (06:03→20:13)
[2017-02-20 06:23] LABS: Basophils % 0.3 % (0.0-0.8); Eosinophils # 0.2 10*3/uL (0.0-0.87); Eosinophils % 1.9 % (0.00-10.9); Hematocrit 22.9 VOL% (35.7-47.0); Hemoglobin 7.2 GM/DL (12.0-16.0); Immature Granulocytes % 1.1 %; Immature Granulocytes Absolute 0.12 #; Lymphocytes # 2.8 10*3/uL (1.4-4.0); Lymphocytes % 26.5 % (21.3-54.2); Mean Corpuscular HGB Conc 31.4 GM/DL (32-36); Mean Corpuscular Hemoglobin 28 PG (27-34); Mean Corpuscular Volume 89.8 FL (87-102); Mean Platelet Volume 9.1 FL (9.6-12.0); Monocytes # 0.7 10*3/uL (0.11-0.8); Monocytes % 6.7 % (1.7-12.7); Neutrophils # 6.7 10*3/uL (1.4-7.4); Neutrophils % 63.5 % (38.7-73.9); Platelet Count 307 T/CUMM (130-400); Red Blood Count 2.55 MC/CUMM (3.8-5.5); Red Cell Distribution Width 15.1 % (9.3-17.3); White Blood Count 10.5 T/CUMM (4-12)
[2017-02-20 07:08] LABS: Calcium 10.9 MG/DL (8.5-10.1); Osmolality,Calculated 272.2 MOS/KG (273-304); Potassium 4.1 MMOL/L (3.5-5.1)
[2017-02-20] MEDS: DONEPEZIL 10 MG TABLET PO SCH ×2 (08:50→20:17)
[2017-02-20 08:51] LABS: PT Patient Result 54.5 SECS; Partial Thromboplastin Time 64.8 SECS (0-40)
[2017-02-20] MEDS: MULTIVITAMIN (CENTRUM) TABLET PO SCH (08:51)
[2017-02-20] MEDS: DOCUSATE SODIUM 100 MG CAPSULE PO SCH (08:51)
[2017-02-20] MEDS: amLODIPine 10 MG TABLET PO SCH (08:52)
[2017-02-20] MEDS: FUROSEMIDE 20 MG TABLET PO SCH (08:52)
[2017-02-20] MEDS: SODIUM HYPOCHLORITE 0.25% IRRIG 473 ML BOTTLE TOP SCH (08:52)
[2017-02-20] MEDS: POTASSIUM CHLORIDE 10 MEQ TABLET PO SCH (08:52)
[2017-02-20 08:54] LABS: INR 5.5
[2017-02-20 12:07] LABS: PT Patient Result 56.2 SECS
[2017-02-20 12:08] LABS: INR 5.7
[2017-02-20] MEDS ORDERED: PHYTONADIONE 10 MG/1 ML AMP SUBCUT ONE (12:30)
[2017-02-20] MEDS ORDERED: cefTAZidime 500 MG in SYRINGE 1 EACH IV SCH (13:00)
[2017-02-21 05:30] LABS: Basophils % 0.6 % (0.0-0.8); Eosinophils # 0.2 10*3/uL (0.0-0.87); Eosinophils % 2.8 % (0.00-10.9); Immature Granulocytes Absolute 0.07 #; Lymphocytes # 2.5 10*3/uL (1.4-4.0); Lymphocytes % 36.2 % (21.3-54.2); Mean Corpuscular Hemoglobin 28 PG (27-34); Mean Corpuscular Volume 89.7 FL (87-102); Monocytes # 0.5 10*3/uL (0.11-0.8); Monocytes % 7.6 % (1.7-12.7); Neutrophils # 3.6 10*3/uL (1.4-7.4); Neutrophils % 51.8 % (38.7-73.9); Platelet Count 290 T/CUMM (130-400); Red Blood Count 2.23 MC/CUMM (3.8-5.5); Red Cell Distribution Width 14.9 % (9.3-17.3); White Blood Count 6.9 T/CUMM (4-12)
[2017-02-21 05:38] LABS: Hemoglobin 6.2 GM/DL (12.0-16.0)
[2017-02-21 05:44] LABS: INR 3.4
[2017-02-21 05:46] LABS: PT Patient Result 34.1 SECS
[2017-02-21] MEDS ORDERED: SODIUM CHLORIDE 0.9% 1,000 ML IV PRN (05:57)
[2017-02-21] MEDS: LEVOTHYROXINE 100 MCG VIAL IV SCH (06:01)
[2017-02-21 06:12] LABS: Calcium 10.4 MG/DL (8.5-10.1); Potassium 3.8 MMOL/L (3.5-5.1)
[2017-02-21 06:23] LABS: INR 3.4
[2017-02-21 06:39] LABS: Partial Thromboplastin Time 66.9 SECS (0-40)
[2017-02-21] MEDS: MEROPENEM 500 MG in SYRINGE 1 EACH IV SCH ×2 (09:22→15:49)
[2017-02-21] MEDS: DONEPEZIL 10 MG TABLET PO SCH ×2 (09:23→20:57)
[2017-02-21] MEDS: POTASSIUM CHLORIDE 10 MEQ TABLET PO SCH (09:23)
[2017-02-21] MEDS: FUROSEMIDE 20 MG TABLET PO SCH (09:23)
[2017-02-21] MEDS: amLODIPine 10 MG TABLET PO SCH (09:23)
[2017-02-21] MEDS: MULTIVITAMIN (CENTRUM) TABLET PO SCH (09:23)
[2017-02-21] MEDS: DOCUSATE SODIUM 100 MG CAPSULE PO SCH (09:23)
[2017-02-21] MEDS: SODIUM HYPOCHLORITE 0.25% IRRIG 473 ML BOTTLE TOP SCH (09:24)
[2017-02-21] MEDS: DEXTROSE 5% NACL 0.45% 1,000 ML IV SCH ×2 (10:19→20:56)
[2017-02-21] MEDS ORDERED: traMADol 50 MG TABLET PO PRN (11:44)
[2017-02-21] MEDS: CLINDAMYCIN INJ 300 MG in PREMIX 1 EACH IV SCH (12:14)
[2017-02-21] MEDS ORDERED: GLUCAGON 1 MG VIAL IM PRN (12:23)
[2017-02-21] MEDS ORDERED: DEXTROSE 50% 25 GM/50 ML VIAL IV PRN (12:23)
[2017-02-21] MEDS ORDERED: FAT EMULSION 20% 250 ML IV SCH (14:00)
[2017-02-21] MEDS ORDERED: DEXTROSE 10% 1,000 ML IV PRN (17:00)
[2017-02-21] MEDS ORDERED: TRACE ELEMENTS (5) 1 ML, MULTIVITAMIN INJ 10 ML in AMINO ACIDS/DEXT/LYTES 5-15% 1,000 ML IV SCH (17:00)
[2017-02-21] MEDS ORDERED: INSULIN REGULAR 100 UNIT/ML SUBCUT SCH (18:00)
[2017-02-21 18:40] LABS: Hematocrit 29.1 VOL% (35.7-47.0)
[2017-02-21 18:45] LABS: Hemoglobin 9.6 GM/DL (12.0-16.0)
[2017-02-22] MEDS: MEROPENEM 500 MG in SYRINGE 1 EACH IV SCH ×4 (01:16→23:52)
[2017-02-22] MEDS: LEVOTHYROXINE 100 MCG VIAL IV SCH ×2 (05:09→06:16)
[2017-02-22] MEDS: DEXTROSE 5% NACL 0.45% 1,000 ML IV SCH ×3 (07:06→23:52)
[2017-02-22 07:41] LABS: Basophils # 0.1 10*3/uL (0.0-0.2); Basophils % 0.8 % (0.0-0.8); Eosinophils # 0.2 10*3/uL (0.0-0.87); Eosinophils % 2.4 % (0.00-10.9); Hematocrit 28.3 VOL% (35.7-47.0); Hemoglobin 9.1 GM/DL (12.0-16.0); Immature Granulocytes % 0.8 %; Immature Granulocytes Absolute 0.06 #; Lymphocytes % 26.7 % (21.3-54.2); Mean Corpuscular HGB Conc 32.2 GM/DL (32-36); Mean Corpuscular Hemoglobin 29 PG (27-34); Mean Corpuscular Volume 88.7 FL (87-102); Monocytes # 0.5 10*3/uL (0.11-0.8); Monocytes % 6.2 % (1.7-12.7); Neutrophils # 4.7 10*3/uL (1.4-7.4); Neutrophils % 63.1 % (38.7-73.9); Platelet Count 315 T/CUMM (130-400); Red Blood Count 3.19 MC/CUMM (3.8-5.5); Red Cell Distribution Width 15.9 % (9.3-17.3); White Blood Count 7.4 T/CUMM (4-12)
[2017-02-22 07:51] LABS: INR 1.3; PT Patient Result 13.4 SECS
[2017-02-22 08:16] LABS: Calcium 10.3 MG/DL (8.5-10.1); Magnesium 1.9 MG/DL (1.8-2.4); Potassium 4.4 MMOL/L (3.5-5.1)
[2017-02-22 08:19] LABS: Osmolality,Calculated 273.8 MOS/KG (273-304); Potassium 4.3 MMOL/L (3.5-5.1)
[2017-02-22] MEDS: DONEPEZIL 10 MG TABLET PO SCH ×2 (10:09→22:59)
[2017-02-22] MEDS: MULTIVITAMIN (CENTRUM) TABLET PO SCH (10:09)
[2017-02-22] MEDS: amLODIPine 10 MG TABLET PO SCH (10:10)
[2017-02-22] MEDS: FUROSEMIDE 20 MG TABLET PO SCH (10:10)
[2017-02-22] MEDS: DOCUSATE SODIUM 100 MG CAPSULE PO SCH (10:10)
[2017-02-22] MEDS: POTASSIUM CHLORIDE 20 MEQ/15 ML UDCUP PO SCH (10:23)
[2017-02-22] MEDS: SODIUM HYPOCHLORITE 0.25% IRRIG 473 ML BOTTLE TOP SCH (10:55)
[2017-02-22] MEDS: POTASSIUM CHLORIDE 10 MEQ TABLET PO SCH (11:22)
[2017-02-22] MEDS ORDERED: TRACE ELEMENTS (5) 1 ML, MULTIVITAMIN INJ 10 ML in AMINO ACIDS/DEXT/LYTES 5-15% 2,000 ML IV SCH (17:00)
[2017-02-23] MEDS: LEVOTHYROXINE 100 MCG VIAL IV SCH ×2 (05:26→06:58)
[2017-02-23 06:25] LABS: INR 1.1
[2017-02-23] MEDS: MEROPENEM 500 MG in SYRINGE 1 EACH IV SCH (09:16)
[2017-02-23] MEDS: amLODIPine 10 MG TABLET PO SCH (09:16)
[2017-02-23] MEDS: DONEPEZIL 10 MG TABLET PO SCH ×3 (09:16→21:02)
[2017-02-23] MEDS: FUROSEMIDE 20 MG TABLET PO SCH (09:16)
[2017-02-23] MEDS: MULTIVITAMIN (CENTRUM) TABLET PO SCH (09:24)
[2017-02-23] MEDS: POTASSIUM CHLORIDE 20 MEQ/15 ML UDCUP PO SCH (09:24)
[2017-02-23] MEDS: DOCUSATE SODIUM 100 MG CAPSULE PO SCH (09:24)
[2017-02-23] MEDS: SODIUM HYPOCHLORITE 0.25% IRRIG 473 ML BOTTLE TOP SCH (11:30)
[2017-02-23] MEDS: DEXTROSE 5% NACL 0.45% 1,000 ML IV SCH (13:46)
[2017-02-23] MEDS: MEROPENEM 1,000 MG in SYRINGE 1 EACH IV SCH ×2 (16:09→22:50)
[2017-02-23] MEDS: VANCOMYCIN INJ 1,250 MG in SODIUM CHLORIDE 0.45% 250 ML IV SCH (16:15)
[2017-02-24] MEDS: DEXTROSE 5% NACL 0.45% 1,000 ML IV SCH ×3 (01:23→15:06)
[2017-02-24] MEDS: MEROPENEM 1,000 MG in SYRINGE 1 EACH IV SCH ×3 (05:29→15:10)
[2017-02-24] MEDS: LEVOTHYROXINE 100 MCG VIAL IV SCH ×2 (05:30→06:15)
[2017-02-24] MEDS ORDERED: BUPIVACAINE 0.5% /EPI 10 ML VIAL ONE (06:25)
[2017-02-24] MEDS ORDERED: HYDROmorphone 2 MG/1 ML VIAL IV PRN (08:19)
[2017-02-24] MEDS ORDERED: oxyCODONE/ACETAMINOPHEN 5-325 MG TABLET PO PRN (08:19)
[2017-02-24] MEDS ORDERED: TUBERCULIN SKIN TEST 0.1 ML SYRINGE INTRADERM ONE (08:26)
[2017-02-24] MEDS ORDERED: PROPOFOL 200 MG/20 ML VIAL IV ONE (08:35)
[2017-02-24] MEDS ORDERED: fentaNYL 100 MCG/2 ML VIAL ONE (08:35)
[2017-02-24] MEDS ORDERED: MIDAZOLAM 2 MG/2 ML VIAL ONE (08:35)
[2017-02-24] MEDS ORDERED: SODIUM CHLORIDE 0.9% 100 ML IV ONE (08:35)
[2017-02-24] MEDS: SODIUM HYPOCHLORITE 0.25% IRRIG 473 ML BOTTLE TOP SCH (08:42)
[2017-02-24] MEDS: DOCUSATE SODIUM 100 MG CAPSULE PO SCH (08:42)
[2017-02-24] MEDS: MULTIVITAMIN (CENTRUM) TABLET PO SCH (08:42)
[2017-02-24] MEDS: DONEPEZIL 10 MG TABLET PO SCH ×2 (08:42→20:46)
[2017-02-24] MEDS: FUROSEMIDE 20 MG TABLET PO SCH (08:42)
[2017-02-24] MEDS: POTASSIUM CHLORIDE 20 MEQ/15 ML UDCUP PO SCH (08:43)
[2017-02-24] MEDS: amLODIPine 10 MG TABLET PO SCH (08:43)
[2017-02-24] MEDS ORDERED: ceFAZolin 2,000 MG in PREMIX 1 EACH IV ONE (08:58)
[2017-02-24 10:35] LABS: INR 1.1; PT Patient Result 11.8 SECS
[2017-02-24] MEDS: PANTOPRAZOLE 40 MG VIAL IV SCH (12:02)
[2017-02-24] MEDS: ENOXAPARIN 40 MG/0.4 ML SYRINGE SUBCUT SCH (12:03)
[2017-02-24 13:17] LABS: Hematocrit 30.6 VOL% (35.7-47.0); Hemoglobin 9.5 GM/DL (12.0-16.0)
[2017-02-24] MEDS: ceFAZolin 2,000 MG in PREMIX 1 EACH IV SCH ×2 (15:14→22:58)
[2017-02-24] MEDS: VANCOMYCIN INJ 1,250 MG in SODIUM CHLORIDE 0.45% 250 ML IV SCH (15:54)
[2017-02-25] MEDS: MEROPENEM 1,000 MG in SYRINGE 1 EACH IV SCH ×4 (00:08→23:48)
[2017-02-25] MEDS: DEXTROSE 5% NACL 0.45% 1,000 ML IV SCH ×2 (03:43→18:46)
[2017-02-25 06:37] LABS: Hemoglobin 8.9 GM/DL (12.0-16.0); Mean Corpuscular Volume 88.1 FL (87-102); Red Blood Count 3.18 MC/CUMM (3.8-5.5); White Blood Count 9.4 T/CUMM (4-12)
[2017-02-25 06:38] LABS: Basophils # 0.1 10*3/uL (0.0-0.2); Basophils % 0.5 % (0.0-0.8); Eosinophils # 0.1 10*3/uL (0.0-0.87); Eosinophils % 1.4 % (0.00-10.9); Immature Granulocytes % 0.7 %; Immature Granulocytes Absolute 0.07 #; Lymphocytes # 2.5 10*3/uL (1.4-4.0); Lymphocytes % 26.7 % (21.3-54.2); Mean Corpuscular HGB Conc 31.8 GM/DL (32-36); Mean Corpuscular Hemoglobin 28 PG (27-34); Mean Platelet Volume 9.4 FL (9.6-12.0); Monocytes # 0.8 10*3/uL (0.11-0.8); Neutrophils # 5.9 10*3/uL (1.4-7.4); Neutrophils % 62.7 % (38.7-73.9); Platelet Count 257 T/CUMM (130-400); Red Cell Distribution Width 15.1 % (9.3-17.3)
[2017-02-25 06:42] LABS: INR 1.1; PT Patient Result 11.5 SECS
[2017-02-25 07:11] LABS: Calcium 9.1 MG/DL (8.5-10.1); Magnesium 1.8 MG/DL (1.8-2.4); Potassium 3.9 MMOL/L (3.5-5.1)
[2017-02-25] MEDS: LEVOTHYROXINE 100 MCG VIAL IV SCH (07:36)
[2017-02-25] MEDS: DOCUSATE SODIUM 100 MG CAPSULE PO SCH (09:23)
[2017-02-25] MEDS: amLODIPine 10 MG TABLET PO SCH (09:23)
[2017-02-25] MEDS: PANTOPRAZOLE 40 MG VIAL IV SCH (09:23)
[2017-02-25] MEDS: MULTIVITAMIN (CENTRUM) TABLET PO SCH (09:23)
[2017-02-25] MEDS: ENOXAPARIN 40 MG/0.4 ML SYRINGE SUBCUT SCH ×2 (09:23→11:43)
[2017-02-25] MEDS: FUROSEMIDE 20 MG TABLET PO SCH (09:23)
[2017-02-25] MEDS: DONEPEZIL 10 MG TABLET PO SCH ×2 (09:23→23:03)
[2017-02-25] MEDS: POTASSIUM CHLORIDE 20 MEQ/15 ML UDCUP PO SCH (09:24)
[2017-02-25] MEDS: SKIN HEALING OINT (AQUAPHOR) 50 GM TUBE TOP PRN (11:42)
[2017-02-25] MEDS: SODIUM HYPOCHLORITE 0.25% IRRIG 473 ML BOTTLE TOP SCH (11:42)
[2017-02-25] MEDS: VANCOMYCIN INJ 1,250 MG in SODIUM CHLORIDE 0.45% 250 ML IV SCH (15:15)
[2017-02-26 05:48] LABS: INR 1.1; PT Patient Result 11.7 SECS
[2017-02-26 06:21] LABS: Calcium 8.8 MG/DL (8.5-10.1); Magnesium 1.8 MG/DL (1.8-2.4); Osmolality,Calculated 277.5 MOS/KG (273-304); Potassium 3.3 MMOL/L (3.5-5.1)
[2017-02-26] MEDS: MEROPENEM 1,000 MG in SYRINGE 1 EACH IV SCH ×3 (06:44→23:53)
[2017-02-26] MEDS: LEVOTHYROXINE 100 MCG VIAL IV SCH (06:44)
[2017-02-26] MEDS: DEXTROSE 5% NACL 0.45% 1,000 ML IV SCH ×2 (06:48→21:45)
[2017-02-26] MEDS: POTASSIUM CHLORIDE 20 MEQ/15 ML UDCUP PO SCH (08:42)
[2017-02-26] MEDS: MULTIVITAMIN (CENTRUM) TABLET PO SCH (08:42)
[2017-02-26] MEDS: PANTOPRAZOLE 40 MG VIAL IV SCH (08:42)
[2017-02-26] MEDS: DOCUSATE SODIUM 100 MG CAPSULE PO SCH (08:42)
[2017-02-26] MEDS: DONEPEZIL 10 MG TABLET PO SCH ×2 (08:42→21:45)
[2017-02-26] MEDS: FUROSEMIDE 20 MG TABLET PO SCH (08:42)
[2017-02-26] MEDS: amLODIPine 10 MG TABLET PO SCH (08:43)
[2017-02-26] MEDS: ENOXAPARIN 40 MG/0.4 ML SYRINGE SUBCUT SCH (10:46)
[2017-02-26] MEDS ORDERED: BISACODYL 10 MG SUPP RECTAL ONE (13:52)
[2017-02-26] MEDS: SODIUM HYPOCHLORITE 0.25% IRRIG 473 ML BOTTLE TOP SCH (15:13)
[2017-02-26] MEDS: VANCOMYCIN INJ 1,000 MG in SODIUM CHLORIDE 0.9% 250 ML IV SCH (17:16)
[2017-02-27 06:15] LABS: Magnesium 1.8 MG/DL (1.8-2.4); Osmolality,Calculated 278.4 MOS/KG (273-304); Potassium 3.7 MMOL/L (3.5-5.1)
[2017-02-27] MEDS: LEVOTHYROXINE 100 MCG VIAL IV SCH (06:15)
[2017-02-27] MEDS: MEROPENEM 1,000 MG in SYRINGE 1 EACH IV SCH ×3 (06:16→23:22)
[2017-02-27] MEDS: MULTIVITAMIN (CENTRUM) TABLET PO SCH (08:54)
[2017-02-27] MEDS: DONEPEZIL 10 MG TABLET PO SCH ×2 (08:54→21:04)
[2017-02-27] MEDS: FUROSEMIDE 20 MG TABLET PO SCH (08:55)
[2017-02-27] MEDS: amLODIPine 10 MG TABLET PO SCH (08:55)
[2017-02-27] MEDS: DOCUSATE SODIUM 100 MG CAPSULE PO SCH (08:55)
[2017-02-27] MEDS: POTASSIUM CHLORIDE 20 MEQ/15 ML UDCUP PO SCH (08:55)
[2017-02-27] MEDS: PANTOPRAZOLE 40 MG VIAL IV SCH (08:55)
[2017-02-27] MEDS: SKIN HEALING OINT (AQUAPHOR) 50 GM TUBE TOP PRN (08:56)
[2017-02-27] MEDS: DEXTROSE 5% NACL 0.45% 1,000 ML IV SCH ×2 (08:56→23:21)
[2017-02-27] MEDS: SODIUM HYPOCHLORITE 0.25% IRRIG 473 ML BOTTLE TOP SCH (08:56)
[2017-02-27] MEDS: ENOXAPARIN 40 MG/0.4 ML SYRINGE SUBCUT SCH (10:06)
[2017-02-27] MEDS: VANCOMYCIN INJ 1,000 MG in SODIUM CHLORIDE 0.9% 250 ML IV SCH (16:12)
[2017-02-28 05:45] LABS: Basophils # 0.1 10*3/uL (0.0-0.2); Basophils % 0.9 % (0.0-0.8); Eosinophils # 0.1 10*3/uL (0.0-0.87); Eosinophils % 1.6 % (0.00-10.9); Hematocrit 24.1 VOL% (35.7-47.0); Hemoglobin 7.7 GM/DL (12.0-16.0); Immature Granulocytes % 0.6 %; Immature Granulocytes Absolute 0.05 #; Lymphocytes # 2.9 10*3/uL (1.4-4.0); Lymphocytes % 36.1 % (21.3-54.2); Mean Corpuscular Hemoglobin 28 PG (27-34); Mean Corpuscular Volume 88.6 FL (87-102); Mean Platelet Volume 9.5 FL (9.6-12.0); Monocytes # 0.7 10*3/uL (0.11-0.8); Monocytes % 8.2 % (1.7-12.7); Neutrophils # 4.2 10*3/uL (1.4-7.4); Neutrophils % 52.6 % (38.7-73.9); Platelet Count 199 T/CUMM (130-400); Red Blood Count 2.72 MC/CUMM (3.8-5.5); Red Cell Distribution Width 15.2 % (9.3-17.3); White Blood Count 7.9 T/CUMM (4-12)
[2017-02-28 06:13] LABS: Calcium 8.9 MG/DL (8.5-10.1); Magnesium 1.7 MG/DL (1.8-2.4); Osmolality,Calculated 273.7 MOS/KG (273-304); Potassium 3.7 MMOL/L (3.5-5.1)
[2017-02-28] MEDS: DEXTROSE 5% NACL 0.45% 1,000 ML IV SCH ×2 (06:21→12:58)
[2017-02-28] MEDS: LEVOTHYROXINE 100 MCG VIAL IV SCH (06:21)
[2017-02-28] MEDS: MEROPENEM 1,000 MG in SYRINGE 1 EACH IV SCH (06:21)
[2017-02-28] MEDS: MULTIVITAMIN (CENTRUM) TABLET PO SCH (08:57)
[2017-02-28] MEDS: POTASSIUM CHLORIDE 20 MEQ/15 ML UDCUP PO SCH (08:57)
[2017-02-28] MEDS: DOCUSATE SODIUM 100 MG CAPSULE PO SCH (08:57)
[2017-02-28] MEDS: FUROSEMIDE 20 MG TABLET PO SCH (08:57)
[2017-02-28] MEDS: amLODIPine 10 MG TABLET PO SCH (08:57)
[2017-02-28] MEDS: PANTOPRAZOLE 40 MG VIAL IV SCH (08:57)
[2017-02-28] MEDS: DONEPEZIL 10 MG TABLET PO SCH ×2 (08:57→20:35)
[2017-02-28] MEDS: SODIUM HYPOCHLORITE 0.25% IRRIG 473 ML BOTTLE TOP SCH (09:40)
[2017-02-28] MEDS ORDERED: SODIUM CHLORIDE 0.9% 1,000 ML IV PRN (10:03)
[2017-02-28] MEDS: ENOXAPARIN 40 MG/0.4 ML SYRINGE SUBCUT SCH (12:01)
[2017-02-28] MEDS: AMPICILLIN/SULBACTAM 3,000 MG in SODIUM CHLORIDE 0.9% 100 ML IV SCH ×2 (15:18→20:35)
[2017-02-28] MEDS: VANCOMYCIN INJ 1,000 MG in SODIUM CHLORIDE 0.9% 250 ML IV SCH (18:01)
[2017-03-01] MEDS: DEXTROSE 5% NACL 0.45% 1,000 ML IV SCH ×3 (01:51→20:40)
[2017-03-01] MEDS: AMPICILLIN/SULBACTAM 3,000 MG in SODIUM CHLORIDE 0.9% 100 ML IV SCH ×4 (01:52→20:32)
[2017-03-01] MEDS: LEVOTHYROXINE 100 MCG VIAL IV SCH (06:15)
[2017-03-01 06:47] LABS: Basophils # 0.1 10*3/uL (0.0-0.2); Basophils % 0.7 % (0.0-0.8); Eosinophils # 0.1 10*3/uL (0.0-0.87); Eosinophils % 1.6 % (0.00-10.9); Hematocrit 27.1 VOL% (35.7-47.0); Hemoglobin 8.6 GM/DL (12.0-16.0); Immature Granulocytes % 0.3 %; Immature Granulocytes Absolute 0.02 #; Lymphocytes # 2.5 10*3/uL (1.4-4.0); Lymphocytes % 34.8 % (21.3-54.2); Mean Corpuscular HGB Conc 31.7 GM/DL (32-36); Mean Corpuscular Hemoglobin 28 PG (27-34); Mean Corpuscular Volume 88.3 FL (87-102); Mean Platelet Volume 9.6 FL (9.6-12.0); Monocytes # 0.6 10*3/uL (0.11-0.8); Monocytes % 9.1 % (1.7-12.7); Neutrophils # 3.8 10*3/uL (1.4-7.4); Neutrophils % 53.5 % (38.7-73.9); Platelet Count 192 T/CUMM (130-400); Red Blood Count 3.07 MC/CUMM (3.8-5.5); Red Cell Distribution Width 15.5 % (9.3-17.3); White Blood Count 7.1 T/CUMM (4-12)
[2017-03-01 07:23] LABS: Magnesium 1.8 MG/DL (1.8-2.4); Osmolality,Calculated 275.5 MOS/KG (273-304); Potassium 3.5 MMOL/L (3.5-5.1)
[2017-03-01] MEDS: PANTOPRAZOLE 40 MG VIAL IV SCH (08:39)
[2017-03-01] MEDS: DOCUSATE SODIUM 100 MG CAPSULE PO SCH (08:42)
[2017-03-01] MEDS: MULTIVITAMIN (CENTRUM) TABLET PO SCH (08:42)
[2017-03-01] MEDS: FUROSEMIDE 20 MG TABLET PO SCH (08:42)
[2017-03-01] MEDS: SODIUM HYPOCHLORITE 0.25% IRRIG 473 ML BOTTLE TOP SCH (08:42)
[2017-03-01] MEDS: DONEPEZIL 10 MG TABLET PO SCH ×2 (08:42→20:32)
[2017-03-01] MEDS: POTASSIUM CHLORIDE 20 MEQ/15 ML UDCUP PO SCH (08:43)
[2017-03-01] MEDS: amLODIPine 10 MG TABLET PO SCH (08:43)
[2017-03-01] MEDS: ENOXAPARIN 40 MG/0.4 ML SYRINGE SUBCUT SCH (11:05)
[2017-03-01] MEDS: VANCOMYCIN INJ 1,000 MG in SODIUM CHLORIDE 0.9% 250 ML IV SCH (18:37)
[2017-03-02] MEDS: AMPICILLIN/SULBACTAM 3,000 MG in SODIUM CHLORIDE 0.9% 100 ML IV SCH ×4 (01:38→21:41)
[2017-03-02] MEDS: LEVOTHYROXINE 100 MCG VIAL IV SCH (06:03)
[2017-03-02] MEDS: DOCUSATE SODIUM 100 MG CAPSULE PO SCH (10:19)
[2017-03-02] MEDS: amLODIPine 10 MG TABLET PO SCH (10:19)
[2017-03-02] MEDS: FUROSEMIDE 20 MG TABLET PO SCH (10:20)
[2017-03-02] MEDS: POTASSIUM CHLORIDE 20 MEQ/15 ML UDCUP PO SCH (10:20)
[2017-03-02] MEDS: MULTIVITAMIN (CENTRUM) TABLET PO SCH (10:20)
[2017-03-02] MEDS: DONEPEZIL 10 MG TABLET PO SCH ×2 (10:20→21:44)
[2017-03-02] MEDS: PANTOPRAZOLE 40 MG VIAL IV SCH (10:20)
[2017-03-02] MEDS: SODIUM HYPOCHLORITE 0.25% IRRIG 473 ML BOTTLE TOP SCH (10:23)
[2017-03-02] MEDS: ENOXAPARIN 40 MG/0.4 ML SYRINGE SUBCUT SCH (12:29)
[2017-03-02] MEDS: DEXTROSE 5% NACL 0.45% 1,000 ML IV SCH ×2 (12:30→21:40)
[2017-03-02 14:12] LABS: Calcium 8.8 MG/DL (8.5-10.1); Osmolality,Calculated 272.8 MOS/KG (273-304); Potassium 3.9 MMOL/L (3.5-5.1)
[2017-03-02] MEDS: VANCOMYCIN INJ 1,000 MG in SODIUM CHLORIDE 0.9% 250 ML IV SCH (14:50)
[2017-03-03] MEDS: AMPICILLIN/SULBACTAM 3,000 MG in SODIUM CHLORIDE 0.9% 100 ML IV SCH ×4 (02:46→23:10)
[2017-03-03] MEDS: LEVOTHYROXINE 100 MCG VIAL IV SCH (07:01)
[2017-03-03] MEDS: PANTOPRAZOLE 40 MG VIAL IV SCH (10:37)
[2017-03-03] MEDS: MULTIVITAMIN (CENTRUM) TABLET PO SCH (10:43)
[2017-03-03] MEDS: DONEPEZIL 10 MG TABLET PO SCH ×2 (10:44→20:39)
[2017-03-03] MEDS: DOCUSATE SODIUM 100 MG CAPSULE PO SCH (10:45)
[2017-03-03] MEDS: amLODIPine 10 MG TABLET PO SCH (10:46)
[2017-03-03] MEDS: FUROSEMIDE 20 MG TABLET PO SCH (10:46)
[2017-03-03] MEDS: ENOXAPARIN 40 MG/0.4 ML SYRINGE SUBCUT SCH (10:47)
[2017-03-03] MEDS: POTASSIUM CHLORIDE 20 MEQ/15 ML UDCUP PO SCH (10:49)
[2017-03-03] MEDS: SODIUM HYPOCHLORITE 0.25% IRRIG 473 ML BOTTLE TOP SCH (15:57)
[2017-03-03] MEDS: VANCOMYCIN INJ 1,000 MG in SODIUM CHLORIDE 0.9% 250 ML IV SCH (15:59)
[2017-03-03] MEDS: DEXTROSE 5% NACL 0.45% 1,000 ML IV SCH ×2 (19:57→20:39)
[2017-03-04] MEDS: DEXTROSE 5% NACL 0.45% 1,000 ML IV SCH ×2 (00:21→11:27)
[2017-03-04] MEDS: AMPICILLIN/SULBACTAM 3,000 MG in SODIUM CHLORIDE 0.9% 100 ML IV SCH ×2 (04:28→11:26)
[2017-03-04] MEDS: LEVOTHYROXINE 100 MCG VIAL IV SCH (06:35)
[2017-03-04] MEDS: FUROSEMIDE 20 MG TABLET PO SCH (09:17)
[2017-03-04] MEDS: DOCUSATE SODIUM 100 MG CAPSULE PO SCH (09:17)
[2017-03-04] MEDS: POTASSIUM CHLORIDE 20 MEQ/15 ML UDCUP PO SCH (09:17)
[2017-03-04] MEDS: MULTIVITAMIN (CENTRUM) TABLET PO SCH (09:17)
[2017-03-04] MEDS: DONEPEZIL 10 MG TABLET PO SCH (09:17)
[2017-03-04] MEDS: PANTOPRAZOLE 40 MG VIAL IV SCH (09:18)
[2017-03-04] MEDS: amLODIPine 10 MG TABLET PO SCH (09:18)
[2017-03-04] MEDS: SODIUM HYPOCHLORITE 0.25% IRRIG 473 ML BOTTLE TOP SCH (09:18)
[2017-03-04 09:58] VITALS: BP 145/73
[2017-03-04] MEDS: ENOXAPARIN 40 MG/0.4 ML SYRINGE SUBCUT SCH (11:27)
== END 2017-03-04 12:47 | DRG 853 ==
LOC: N.5E 12:00
PROVIDERS: ADMIT Internal Medicine Pulmonary Disease; ATTEND Internal Medicine Pulmonary Disease